=== PATIENT | male | born 1970 | race Caucasian/White ===

== ENCOUNTER 2017-01-17 08:12 | Inpatient (IN) ==
[2017-01-17] MEDS ORDERED: Verapamil 5 MG/2 ML VIAL ONE (08:14)
[2017-01-17] MEDS ORDERED: Nitroglycerin 1,000 MCG/10 ML VIAL IV ONE (08:14)
[2017-01-17] MEDS ORDERED: *HR* Heparin 10,000 UNIT/10 ML VIAL ONE (08:15)
[2017-01-17] MEDS ORDERED: Heparin 1,000 UNITS/500 mL NS 500 ML ONE (08:15)
[2017-01-17] MEDS ORDERED: 0.9 % Sodium Chloride 1,000 ML ONE ×2 (08:15→08:21)
[2017-01-17] MEDS ORDERED: *HR* FentaNYL (PF) 100 MCG/2 ML VIAL ONE (08:21)
[2017-01-17] MEDS ORDERED: *HR* Midazolam HCl 2 MG/2 ML VIAL ONE (08:21)
--- NOTE | 2017-01-17 08:28 | Emergency Department Note ---
Disposition Clinical Impression: STEMI (ST elevation myocardial infarction) Disposition: Admitted As Inpatient Condition: Critical Time of Disposition: 08:25 Chest Pain HPI - General Chief Complaint: ED Chest Pain Stated Complaint: STEMI Time Seen by Provider: 01/17/17 08:25 Source: patient, EMS Mode of arrival: ambulatory Limitations: no limitations Vital Signs Reviewed: Yes Nursing Notes Reviewed: Yes - History of Present Illness HPI Narrative: 46-year-old male with chest pain prehospital STEMI alert activated, EMS transmitted 12-lead EKG that showed ST segment elevations in anterior septal leads V2 through V6 with reciprocal changes inferiorly, a STEMI alert was activated prehospital by Dr. Farrar, Dr. Cannon the surgery aide was notified at 8:10. Patient was given 324 of aspirin en route, and 1 of nitroglycerin, had stable blood pressure and vitals mild tachycardia. Patient arrived to ED at 8:25. Limited history obtained from EMS and patient concomitantly with transfer to skilled laborer. Pt complaint: chest pain Onset (ago): hour(s) Pain Location: substernal Severity: severe Severity scale (1-10): 5 Treatments prior to arrival chest pain: aspirin, nitroglycerin Review of Systems: Due to the critical nature of the patient's complaint, chest pain STEMI alert, a full review of systems was not completed, the patient was transferred directly from the EMS squad bay to the catheter lab Limitations: ROS unobtainable due to patients medical condition Physical Exam A full physical exam was not obtained, evaulated on stretcher en route to [facility]; General: notable were patient's heart rate was 113, blood pressure 155/90, satting 98% on 2L o2 Neuro: the patient was alert and oriented 3, and conversant, appears mildly uncomfortable, Resp: no acute respiratory distress.Respirations even and unlabored. CV: tachycardic Course Course Narrative: 46-year-old male with chest pain, stimulant activated prehospital, patient arrived at approximately 825, by myself and cardiology in the stretcher in route to the [facility], patient's stable vital signs was mentating, but a full physical and review of systems is not obtained secondary to the patient's above complaints, and the urgency of his medical condition requiring catheterizaiton, skilled laborer team was in the squad bay, and the patient was accompanied by the surgery aide Dr. Cannon in the [facility] team directly to the catheter lab from the [facility] and only registered in the emergency department briefly to expedite his transport for definiteive treatment with [facility] intervention Chest Pain - MDM Narrative Medical decision making narrative: 46-year-old male similar activated transported directly to catheter lab for definitive treatment with Dr. Cannon color maker dyer - EKG Data EKG attestation: Yes I reviewed and interpreted this EKG. Rate: tachycardia ST segment elevation in: v2, v3, v4, v5 ST segment depression in: II, III, aVF Interpretation: acute [place] - Core Measures AMI Core Measures Followed: Yes (324mg ASA given en route) Attestation Statement - Attestation Attestation: I examined this patient and my medical decision-making was reviewed with the DRIER BELT CONVEYOR/PA/Advanced Practice Nurse/Resident Physician. I agree with the documented findings, disposition and treatment plan as described except to the extent set forth below. Patient was a field activated STEMI. Well appearing on arrival. Sitting up on cough. Patient went directly to [facility]. There is no history of physical exam performed in the ED. EKG showed sinus tachycardia with ST elevation in V1 through V5. Depressions in inferior leads.
[2017-01-17] MEDS ORDERED: Amiodarone Premix 0 MG/0 ML BAG IVPB ONE (08:58)
[2017-01-17] MEDS ORDERED: Tirofiban 5 MG/100ML 5 MG/100 ML BAG IV ONE ×2 (09:08→10:11)
[2017-01-17] MEDS ORDERED: *HR* Ticagrelor 90 MG TABLET ONE (10:06)
--- NOTE | 2017-01-17 10:23 | Invasive Diagnostic Lab Proc ---
Name: Zak Hitchcock Date of Study: 01/17/2017 Date: 1970 Ht: 72.0in Medical Record#: [id number] Age: 46 Wt: 312.62lb Gender: Male BSA: 2.58 Order #: [id number] BMI: 42.39 Physicians Procedure Physician: Bran Cannon MD, [facility] Referring MD: Referring MD: Staff Name Position Time In Debby Burroughs RT (R) Scrub 08:22 AM Christiana Magallon RN Liner Reroll Tender 08:22 AM Melina Monreal RN Liner Reroll Tender 08:22 AM Debbi Sanchez RN Nurse 08:22 AM [facility], Shreya RT (R) Monitor 08:22 AM Debby Burroughs RT (R) Scrub 08:33 AM Christiana Magallon RN Liner Reroll Tender 08:33 AM Melina Monreal RN Liner Reroll Tender 08:33 AM Debbi Sanchez RN Monitor 08:33 AM [facility], Shreya RT (R) 08:35 AM Indications Indication STEMI Procedures Performed Procedure PRQ CARD REVASC PA 1 VSL L HRT ARTERY/VENTRICLE ANGIO IVUS CORONARY 1ST VESSEL S\\T\\I Pre-Procedure Checklist Informed consent is complete signed and on chart. H\\T\\P is on chart. ID band is on and ID verified with patient. Patient NPO for procedure The procedure was described for the patient and questions were answered. Blood Pressure: 159/96 ECG is on chart. Rhythm: Sinus Tachycardia Plan of Care Patient will tolerate the procedure without complications. Adequate level of comfort will be maintained. Hemodynamics will remain stable Patient will recover from procedure without complications. Respiratory function will be maintained. Cardiac rhythm will remain stable. Patient temperature will be maintained. Patient and/or family have verbalized understanding of the procedure. Patient Education Chief Complaint/Reason for Test: Cardiac Cath Developmental Category: Adult (18-64 years) Developmentally Appropriate for Age: Yes Learning Barriers: None Education Needs: Procedure Education Method: Verbal Information Taught: Cardiac Cath Educational Evaluation: Able to repeat information Intravenous Access Time IV Size Location DC'd Fluid/Drip Rate Units RN 08:27 AM 20g 1 1/4" Patent On Arrival Lt Hand 0.9NaCl 25 ml/hr Allergies Penicillin Vital Signs Time BP (mmHg) HR (bpm) O2 Sat. RR (bpm) LOC 08:35 AM / % 5 = Fully awake and oriented or at pre-proc level 08:35 AM / % 5 = Fully awake and oriented or at pre-proc level 08:36 AM / % 5 = Fully awake and oriented or at pre-proc level 08:51 AM / % 5 = Fully awake and oriented or at pre-proc level 09:06 AM / % 5 = Fully awake and oriented or at pre-proc level 09:13 AM / % 5 = Fully awake and oriented or at pre-proc level 09:19 AM / % 5 = Fully awake and oriented or at pre-proc level 09:22 AM / % 5 = Fully awake and oriented or at pre-proc level 09:29 AM / % 5 = Fully awake and oriented or at pre-proc level 09:44 AM / % 5 = Fully awake and oriented or at pre-proc level 08:34 AM 159 / 96 109 97 % 30 08:39 AM 145 / 79 110 93 % 20 08:44 AM 148 / 88 106 94 % 20 08:49 AM 152 / 92 106 95 % 28 08:54 AM 148 / 95 109 97 % 34 08:59 AM 152 / 96 108 97 % 20 09:04 AM 151 / 99 107 96 % 20 09:09 AM 153 / 94 104 96 % 20 09:14 AM 148 / 98 106 96 % 21 09:19 AM 150 / 100 100 96 % 22 09:24 AM 155 / 90 106 96 % 21 09:29 AM 142 / 78 102 94 % 23 09:34 AM 150 / 96 106 95 % 21 09:39 AM 146 / 85 102 95 % 22 09:44 AM 145 / 89 105 96 % 20 09:49 AM 148 / 84 104 96 % 20 09:54 AM 148 / 93 105 97 % 21 09:59 AM 146 / 89 102 97 % 17 10:04 AM 145 / 93 105 97 % 22 Procedural Medications Time Medication Dose Units Method Given By 08:33 AM Oxygen 2 L/min nasal cannula Christiana Magallon RN 08:34 AM Lidocaine 2% 1 ml Subcutaneous Bran Cannon MD, FACC 08:35 AM Versed 2 mg Intravenous Christiana Magallon RN 08:35 AM Fentanyl 50 mcg Intravenous Christiana Magallon RN 08:35 AM Heparin 4000 units Intraarterial Bran Cannon MD 08:35 AM Nitroglycerin 200 mcg Intraarterial Bran Cannon MD 08:35 AM Verapamil 2.5 mg Intraarterial Bran Cannon MD, FACC 09:07 AM Heparin 2000 units Intravenous Christiana Magallon RN 09:09 AM Aggrastat Bolus: 71 ml Intravenous Christiana Magallon RN 09:10 AM Aggrastat 5mg/100ml 25.5 ml Intravenous Christiana Magallon RN 09:25 AM Nitroglycerin 200 mcg Intracoronary Bran Cannon MD 09:36 AM Nitroglycerin 200 mcg Intracoronary Bran Cannon MD 10:04 AM Brilinta 180 mg Orally Christiana Magallon RN ASA Classification: CLASS II- Mild systemic disease (i.e. well-controlled diabetes, hypertension, asthma, cigarette smoking) Emergent Procedure: ASA score is assumed Lenora Score Preprocedure Postprocedure Activity 2- Moves 4 extremities sustained head lift Activity 2- Moves 4 extremities sustained head lift Circulation 2- SBP +/= 20 points of pre-anesthetic level Circulation 2- SBP +/= 20 points of pre-anesthetic level Consciousness 2- Awake and alert oriented x 3 Consciousness 2- Awake and alert oriented x 3 O2 Saturation 2- Able to maintain O2 satruation of 92% on room air O2 Saturation 2- Able to maintain O2 satruation of 92% on room air Respiratory 2- Able to deep breathe and cough well Respiratory 2- Able to deep breathe and cough well Total Score 10 Total Score 10 Contrast Agent: Isovue Diagnostic Contrast: 281 ml Total Contrast: 281 ml Fluoro Dose: 2599 mGy Activated Clotting Time Time Seconds to Clot 09:11 AM 227 Procedure Log Time Note Enter By 08:22 AM Debby Burroughs RT (R) Position: Scrub Time in: 08:22 tsites 08:22 AM Christiana Magallon RN Position: Liner Reroll Tender Time in: 08:22 tsites 08:22 AM Melina Monreal RN Position: Liner Reroll Tender Time in: 08:22 tsites 08:22 AM eDbbi Sanchez RN Position: Nurse Time in: 08:22 tsites 08:22 AM Shreya Morris RT (R) Position: Monitor Time in: 08:22 tsites 08:22 AM Physician arrived 08:22 tsites 08:23 AM Patient charges- Angio tray pack, Navilyst 3mm J, Pulse Oximetry and ACIST tubing and transducer tsites 08:23 AM IV Supplies used: J loop Angio Cath. tsites 08:23 AM CathStat 08:27 AM Time: 08:27 Oxygen on at 2 L/min per nasal cannula by Christiana Magallon RN tsites 08:27 AM Haroldo and caroline completed tsites 08:27 AM Sign in performed according to hospital policy. tsites 08:27 AM Procedure start 08:33 tsites 08:27 AM Pt arrived to floating labor gang supervisor 2 at 08:27 tsites 08:27 AM No labs at this time, came straight from EMS to here tsites 08:28 AM Time out performed according to hospital policy tsites 08:33 AM CathStat 08:33 AM Vitals capture started with the following parameters, Patient=Adult, Interval=5 min, Initial Iigvndud=156 mmHg, Deflation Rate=5 mmHg, Cuff placed on Left Arm 08:33 AM Debby Burroughs RT (R) Position: Scrub Time in: 08:33 tsites 08:33 AM Christiana Magallon RN Position: Liner Reroll Tender Time in: 08:33 tsites 08:33 AM Melina Monreal RN Position: Liner Reroll Tender Time in: 08:33 tsites 08:33 AM Recorded ECG: WI=755 Condition=Condition 1 08:33 AM Debbi Sanchez RN Position: Monitor Time in: 08:33 tsites 08:33 AM Patient charges- Angio tray pack, Navilyst 3mm J, Pulse Oximetry and ACIST tubing and transducer tsites 08:34 AM JN=423 bpm, HPWJ=949/96 mmhg, SpO2=97.0 %, Resp=30 B/min 08:34 AM Time: 08:34 1 ml Lidocaine 2% to right radial Subcutaneous Given by Bran Cannon MD, FACC tsites 08:35 AM Access obtained by percutaneous puncture. 6Fr 10cm Terumo Glidesheath sheath placed in right Radial artery. [id number] tsites 08:35 AM Time: 08:35LOC: 5 = Fully awake and oriented or at pre-proc level tsites 08:35 AM Recorded ECG: NN=348 Condition=Condition 1 08:35 AM Shreya Morris RT (R) Position: Time in: 08:35 tsites 08:35 AM Time: 08:39 Patient given 4,000 units Heparin, 200 mcg Nitroglycerin, and 2.5 mg Verapamil Intraarterial by Bran Cannon MD, FACC tsites 08:35 AM Time: 08:35 Versed 2 mg Intravenous Given by Christiana Magallon RN tsites 08:35 AM Time: 08:35 Fentanyl 50 mcg Intravenous Given by Christiana Magallon RN tsites 08:35 AM Pressure channel 1 zeroed. 08:36 AM 6Fr RBL 3.5 Convey guide catheter was used to cannulate the PCI vessel successfully. reused? No tsites 08:36 AM Time: 08:34 Patient comfortable and pain free: Yes tsites 08:36 AM Time: 08:35LOC: 5 = Fully awake and oriented or at pre-proc level tsites 08:36 AM Inflation device was opened. tsites 08:37 AM LCA angiography performed in multiple views. tsites 08:37 AM Recorded Pressure: Ao, CV=411, Condition=Condition 1 (Aorta) Ao 114/91/100 08:37 AM .014 PT Graphix 180cm guide wire across target lesion- successful. reused? No tsites 08:38 AM 2.5 mm x 8 mm Emerge Monorail balloon across target lesion- successful. reused? No tsites 08:39 AM QK=691 bpm, XPWK=277/79 mmhg, SpO2=93.0 %, Resp=20 B/min, Comment=ST 08:40 AM Balloon inflated @ 6 mikayla for 5 seconds tsites 08:40 AM Balloon catheter removed intact. tsites 08:41 AM Guide wire removed intact. tsites 08:41 AM Recorded Pressure: Ao, YH=866, Condition=Condition 1 (Aorta) Ao 113/91/101 08:42 AM guidewire reinserted tsites 08:44 AM PR=183 bpm, UMIS=518/88 mmhg, SpO2=94.0 %, Resp=20 B/min, Comment=ST 08:45 AM Recorded Pressure: Ao, UJ=808, Condition=Condition 1 (Aorta) Ao 120/101/110 08:49 AM NIBP STAT measurement started. 08:49 AM MV=953 bpm, QSCP=125/92 mmhg, SpO2=95 %, Resp=28 B/min 08:49 AM Guide wire removed intact. tsites 08:49 AM Guide catheter removed intact. tsites 08:50 AM 6Fr JR 4 Runway guide catheter was used to cannulate the PCI vessel successfully. reused? No tsites 08:51 AM Time: 08:36 Patient comfortable and pain free: Yes tsites 08:51 AM Time: 08:36LOC: 5 = Fully awake and oriented or at pre-proc level tsites 08:51 AM Recorded Pressure: Ao, HR=98, Condition=Condition 1 (Aorta) Ao 122/98/110 08:52 AM RCA angiography performed in multiple views. tsites 08:52 AM Guide catheter removed intact. tsites 08:53 AM 6Fr EBU 3.25 Medtronic guide catheter was used to cannulate the PCI vessel successfully. reused? No tsites 08:54 AM NL=166 bpm, ICZB=492/95 mmhg, SpO2=97 %, Resp=34 B/min 08:54 AM Recorded Pressure: Ao, LN=058, Condition=Condition 1 (Aorta) Ao 123/102/112 08:54 AM .014 Fielder XT 300cm guide wire across target lesion- successful. reused? No tsites 08:56 AM Guide wire removed intact. tsites 08:56 AM Guide catheter removed intact. tsites 08:56 AM RBL guidecath reinserted tsites 08:58 AM Recorded Pressure: LV, Ao, HU=482, Condition=Condition 1 (Left Ventricle) LV 111/22/16, (Aorta) Ao 126/103/114 08:59 AM SZ=676 bpm, BYAF=830/96 mmhg, SpO2=97.0 %, Resp=20 B/min, Comment=ST 08:59 AM Recorded Pressure: Ao, CC=038, Condition=Condition 1 (Aorta) Ao 128/105/116 09:01 AM 1.2 mm x 12 mm It Admin OTW balloon across target lesion- successful. reused? No tsites 09:04 AM ZY=459 bpm, CVSK=495/99 mmhg, SpO2=96.0 %, Resp=20 B/min, Comment=ST 09:05 AM Balloon inflated @ 14 mikayla for 12 seconds tsites 09:05 AM Balloon inflated @ 10 mikayla for 13 seconds tsites 09:06 AM Time: 08:51LOC: 5 = Fully awake and oriented or at pre-proc level tsites 09:06 AM Time: 08:51 Patient comfortable and pain free: Yes tsites 09:06 AM Lesion found in Proximal LAD. Pre Stenosis: 100 Pre CHARMAINE Flow: 0: No Flow/No perfusion tsites 09:07 AM Proximal Left Anterior Descending Coronary Artery with 100% stenosis. tsites 09:07 AM Balloon inflated @ 14 mikayla for 8 seconds tsites 09:07 AM Time: 09: Heparin 2000 units Intravenous Given by Christiana Magallon RN tsites 09:09 AM Balloon catheter, funeral arranger removed intact. tsites 09:09 AM FH=175 bpm, PEPM=337/94 mmhg, SpO2=96.0 %, Resp=20 B/min, Comment=ST 09:09 AM Recorded Pressure: Ao, EF=126, Condition=Condition 1 (Aorta) Ao 120/97/107 09:10 AM Time: 09:09 Aggrastat Bolus: 71 ml Intravenous Given by Christiana Magallon RN Escalante pump tsites 09:10 AM Time: 09:10 Aggrastat 5mg/100ml 25.5 ml Intravenous Given by Christiana Magallon RN Escalante pump tsites 09:11 AM At 09:11 the ACT was 227 seconds. tsites 09:11 AM Fielder wire cut per Dr. Cannon (was a 300cm wire) tsites 09:12 AM 2.5 x 8 balloon reinserted tsites 09:12 AM Balloon inflated @ 14 mikayla for 13 seconds tsites 09:13 AM Time: :06LOC: 5 = Fully awake and oriented or at pre-proc level tsites 09:13 AM Balloon inflated @ 14 mikayla for 7 seconds tsites 09:13 AM Time: 09:13 Patient comfortable and pain free: Yes tsites 09:13 AM Balloon inflated @ 14 mikayla for 10 seconds tsites 09:14 AM YL=552 bpm, TIAL=241/98 mmhg, SpO2=96.0 %, Resp=21 B/min, Comment=ST 09:14 AM Balloon inflated @ 14 mikayla for 5 seconds tsites 09:14 AM Balloon inflated @ 14 mikayla for 7 seconds tsites 09:14 AM Balloon inflated @ 14 mikayla for 7 seconds tsites 09:15 AM Balloon catheter removed intact. tsites 09:18 AM 3.0mm x 24mm Synergy drug-eluting stent across target lesion- successful Lot #[id number] tsites 09:19 AM AP=104 bpm, CFQQ=037/100 mmhg, SpO2=96.0 %, Resp=22 B/min, Comment=ST 09:19 AM Time: :13LOC: 5 = Fully awake and oriented or at pre-proc level tsites 09:19 AM Time: 09:13 Patient comfortable and pain free: Yes tsites 09:19 AM Stent deployed @ 16 mikayla for 19 seconds tsites 09:21 AM Stent delivery system removed intact. tsites 09:21 AM 3.5 mm x 20mm NC Emerge balloon across target lesion- successful. reused? No tsites 09:22 AM Time: 09:19LOC: 5 = Fully awake and oriented or at pre-proc level tsites 09:23 AM Time: 09:19 Patient comfortable and pain free: Yes tsites 09:23 AM Balloon inflated @ 20 mikayla for 33 seconds tsites 09:24 AM WH=746 bpm, WGHS=479/90 mmhg, SpO2=96.0 %, Resp=21 B/min, Comment=ST 09:24 AM Balloon inflated @ 20 mikayla for 16 seconds tsites 09:25 AM Time: 09:25 Nitroglycerin 200 mcg Intracoronary Given by Bran Cannon MD tsites 09:25 AM Balloon inflated @ 20 mikayla for 12 seconds tsites 09:29 AM BH=513 bpm, GNRG=049/78 mmhg, SpO2=94.0 %, Resp=23 B/min, Comment=ST 09:29 AM Time: :22LOC: 5 = Fully awake and oriented or at pre-proc level tsites 09:29 AM Time: 09:23 Patient comfortable and pain free: Yes tsites 09:34 AM FI=497 bpm, TUEG=171/96 mmhg, SpO2=95.0 %, Resp=21 B/min, Comment=ST 09:34 AM Balloon catheter removed intact. tsites 09:35 AM Recorded Pressure: Ao, MB=914, Condition=Condition 1 (Aorta) Ao 123/101/110 09:36 AM Time: 09:36 Nitroglycerin 200 mcg Intracoronary Given by Bran Cannon MD tsites 09:37 AM Coronary Dominance: Left tsites 09:37 AM Lesion found in Mid RCA. Pre Stenosis: 50 Pre CHARMAINE Flow: 3: Complete and Brisk Flow/Perfusion tsites 09:37 AM Lesion found in Proximal Circumflex. Pre Stenosis: 15 Pre CHARMAINE Flow: 3: Complete and Brisk Flow/Perfusion tsites 09:37 AM Lesion found in Mid Circumflex. Pre Stenosis: 20 Pre CHARMAINE Flow: 3: Complete and Brisk Flow/Perfusion tsites 09:38 AM Right Coronary, Right Posterior Descending Arteries with Right Posterolateral and Acute Marginal branches with 50 % stenosis. tsites 09:38 AM Circumflex, Obtuse Marginal, Left Posterior Descending, and Left Posterolateral Coronary Arteries with 20 % stenosis. tsites 09:38 AM Lesion found in Left PDA. Pre Stenosis: 20 Pre CHARMAINE Flow: 3: Complete and Brisk Flow/Perfusion tsites 09:39 AM TS=952 bpm, FGDV=717/85 mmhg, SpO2=95.0 %, Resp=22 B/min, Comment=ST 09:39 AM Recorded Pressure: Ao, ZJ=070, Condition=Condition 1 (Aorta) Ao 118/95/104 09:39 AM Inflation device was opened. tsites 09:40 AM 3.6Fr/40mHz HEROZ Cross IVUS catheter was inserted into guide catheter and advanced to lesion. IVUS study was done and the catheter was removed. tsites 09:42 AM IVUS catheter removed intact tsites 09:44 AM FP=551 bpm, MDGF=764/89 mmhg, SpO2=96.0 %, Resp=20 B/min, Comment=ST :44 AM Time: :LOC: 5 = Fully awake and oriented or at pre-proc level tsites 09:44 AM Time: 09:29 Patient comfortable and pain free: Yes tsites 09:45 AM 4.0 mm x 20mm NC Trek Rx balloon across target lesion- successful. reused? No tsites 09:48 AM Balloon inflated @ 16 mikayla for 19 seconds tsites 09:49 AM UX=939 bpm, AEEJ=462/84 mmhg, SpO2=96.0 %, Resp=20 B/min, Comment=ST 09:49 AM Balloon inflated @ 12 mikayla for 8 seconds tsites 09:50 AM Balloon inflated @ 20 mikayla for 16 seconds tsites 09:51 AM Balloon catheter removed intact. tsites 09:51 AM 4.5 mm x 8mm NC Trek Rx balloon across target lesion- successful. reused? No tsites 09:54 AM Time: :44LOC: 5 = Fully awake and oriented or at pre-proc level tsites 09:54 AM OU=562 bpm, ZUKU=143/93 mmhg, SpO2=97.0 %, Resp=21 B/min, Comment=ST :54 AM Time: :44 Patient comfortable and pain free: Yes tsites 09:54 AM Balloon inflated @ 12 mikayla for 10 seconds tsites 09:54 AM Balloon inflated @ 16 mikayla for 10 seconds tsites 09:57 AM Balloon inflated @ 18 mikayla for 14 seconds tsites 09:58 AM Balloon catheter removed intact. tsites 09:58 AM Guide wire removed intact. tsites 09:58 AM Guide catheter removed intact. tsites 09:58 AM 5Fr Pigtail catheter inserted over the wire DNC tsites 09:59 AM PU=159 bpm, ZAWR=372/89 mmhg, SpO2=97.0 %, Resp=17 B/min, Comment=ST 10:00 AM Catheter selectively placed in left ventricle tsites 10:00 AM Bolus angiogram of left Ventricle complete: 10 ml/sec for a total of 30 mls tsites 10:00 AM Recorded Pressure: LV, YO=702, Condition=Condition 1 (Left Ventricle) LV 135/15/31 10:01 AM Recorded Pressure: LV, Ao, CB=421, Condition=Condition 1 (Left Ventricle) LV 133/16/48, (Aorta) Ao 122/97/108 10:02 AM Catheter removed tsites 10:02 AM Procedure completed at 10:02 tsites 10:03 AM Arterial sheath pulled, Vasc Band closure device used and was Successful S/N. tsites 10:04 AM WV=825 bpm, NLDC=978/93 mmhg, SpO2=97.0 %, Resp=22 B/min, Comment=ST 10:04 AM Time: 10:04 Brilinta 180 mg Orally Given by Christiana Magallon RN tsites 10:05 AM Sign out completed: Radiation Dose 2599.15 mGy Fluoro Time: 22.1 Isovue 370 - 200ml contrast 281 ml given by Bran Cannon MD, FACC. Complications: NoneCardiac Rehab Consult needed: YesConfirmed administered medications: Yes tsites 10:06 AM Isovue 370 - 200ml,1 Bottle(s) used. tsites 10:06 AM 12 ml air in Vasc Band. tsites 10:06 AM Post ECG Sinus Tachycardia tsites 10:06 AM Post Blood Pressure 145/93 tsites 10:06 AM 10:06 Post Pulses Rt Radial 1+ tsites 10:07 AM Information taught Cardiac Cath, PCI, and Vasc Band tsites 10:07 AM Education needs Procedure, Responsibilities of Patient in Care, and Plan of Care tsites 10:07 AM Learning barriers :None tsites 10:07 AM Education Methods Verbal tsites 10:07 AM Education evaluation Able to repeat information tsites 10:07 AM Site status No bleeding/hematoma - Rt Wrist as reported by Debby Burroughs RT (R) at 10:07 tsites 10:07 AM Plavix, Effient or Brilinta given Yes tsites 10:09 AM Time: 09:54 Patient comfortable and pain free: Yes tsites 10:14 AM Report given to Ninoska TREJO Pt taken to ICU Room #7. 10:14 tsites 10:14 AM Delay to floor No tsites 10:14 AM Patient out of room: 10:14 tsites 10:15 AM Family placed in consult room. tsites 10:15 AM Complications: None tsites Complications Complication None Hemodynamics Pressures Site Systolic/A Wave Diastolic/V Wave Mean AO 114 91 100 AO 113 91 101 AO 120 101 110 AO 122 98 110 AO 123 102 112 LV 111 22 16 AO 126 103 114 AO 128 105 116 AO 120 97 107 AO 123 101 110 AO 118 95 104 LV 135 15 31 LV 133 16 48 AO 122 97 108 Post Procedure Information Blood Pressure: 145/93 mmHg Rhythm: Sinus Tachycardia Post procedural instructions were given Closure Device Time Device Success/Fail 01/17/2017 10:03:00 AM Mechanical Compression Successful Site Checks Time Location Status Staff Sheath In? Note 10:07 AM Rt Wrist No bleeding/hematoma Debby Burroughs RT (R) Pulses Time Site Pre-Procedure Post-Procedure Note 01/17/2017 8:27:00 AM Bilateral radial 2+ 01/17/2017 8:27:00 AM Bilateral DP \\T\\ PT 2+ 10:06:00 AM Rt Radial 1+ Updated by Shreya Morris RT (R) on 01/17/2017 10:16:40 AM Shreya Morris RT electronically signed on 01/17/2017 10:17:23 AM with status of Final
[2017-01-17] MEDS ORDERED: Tirofiban 12.5 MG/250ML 12.5 MG/250 ML BAG IVC SCH (10:30)
[2017-01-17 10:51] LABS: Basophils % 0.1 %; Hematocrit 39.8 % (37.5-50.1); Hemoglobin 13.7 g/dL (12.9-16.9); Lymphocytes % 12.4 %; Mean Corpuscular HGB Conc 34.4 g/dL (31.6-35.5); Mean Corpuscular Hemoglobin 28.8 pg (28.0-33.3); Mean Corpuscular Volume 83.8 fL (83.0-100.0); Mean Platelet Volume 11.8 fL (9.4-12.4); Monocytes # 1.7 K/mcL (0.0-1.3); Neutrophils # 19.5 K/mcL (1.6-8.9); Platelet Count 247 K/mcL (140-400); Red Blood Count 4.75 M/mcL (4.19-5.50); Red Cell Distribution Width 12.7 % (11.5-14.5); Segmented Neutrophils % 79.5 %
[2017-01-17 10:53] LABS: BUN/Creatinine Ratio 12 (6-26); Blood Urea Nitrogen 10 mg/dL (8-26); Carbon Dioxide 22 mEq/L (19-29); Chloride 99 mEq/L (98-109); Potassium 3.9 mEq/L (3.5-4.5); Sodium 130 mEq/L (136-145)
[2017-01-17 10:54] LABS: Alanine Aminotransferase 60 Units/L (0-55); Albumin 3.2 g/dL (3.5-5.0); Alkaline Phosphatase 65 Units/L (38-126); Aspartate Amino Transferase 352 Units/L (5-34); Calcium 8.1 mg/dL (8.6-10.8); Globulin 3.2 g/dL (2.4-3.5); Glucose 129 mg/dL (70-99); Osmolality,Calculated 271 (280-300); Total Protein 6.4 g/dL (6.0-8.3); eGFR For African Americans > 60 (> 60); eGFR For Non-African Americans > 60 (> 60)
--- NOTE | 2017-01-17 11:27 | Pre-Sedation Evaluation ---
Pre-sedation evaluation - Pre-sedation checklist Date of procedure: 01/17/17 Procedure: [facility] Recent Vitals: Last Vital Signs Temp 98.5 F 01/17/17 10:42 Pulse 102 01/17/17 11:12 Resp 14 01/17/17 11:12 BP 147/98 01/17/17 11:12 Pulse Ox 96 01/17/17 11:12 H&P (including ROS) documented in medical record: Yes Previous reaction to sedatives/anesthetics: No Dietary Status: unknown Airway Assessment: Patient can open mouth completely, TMJ function normal If Yes;: Morbid obesity, Enlarged neck circumference, short neck ASA Classification *see protocol: CLASS II-Mild systemic disease, E-EMERGENCY- Add to any of the above to indicate emergent Plan of Care: Pt appropriate candidate for procedure/moderate/conscious sedation , Risks/benefits of procedure/sedation discussed w/ patient/family, If not NPO; Risk of intake outweiged by necessity to perform procedure
--- NOTE | 2017-01-17 13:08 | Electrocardiograph Report ---
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
--- NOTE | 2017-01-17 16:08 | Cardiology History & Physical ---
Date of Encounter: 01/17/17 Time of Encounter: 10:00 Assessment and Plan (1) STEMI (ST elevation myocardial infarction) Current Visit: Yes Status: Acute A/R/B of emergent LHC discussed with patient. Patient wishes to proceed with emergent LHC given severity of ongoing symptoms. Aspirin, Brilinta, heparin. EF assessment with echo and ventriculogram. The assessment and plan as outlined above was discussed with the patient and/or family members who expressed understanding and agreement. All questions were answered. Qualifiers: Involved coronary artery: LAD coronary artery Qualified Code(s): I21.02 - ST elevation (STEMI) myocardial infarction involving left anterior descending coronary artery (2) Hypertension Current Visit: Yes Status: Acute The assessment and plan as outlined above was discussed with the patient and/or family members who expressed understanding and agreement. All questions were answered. Qualifiers: Hypertension type: essential hypertension Qualified Code(s): I10 - Essential (primary) hypertension History of Present Illness Chief complaint: chest pain HPI: Mr. Hitchcock is a 46 year old male with no previous cardiac history presenting with worsening chest pressure without radiation but associated with dyspnea. Symptoms started Tuesday and worsened this morning. Pain improved mildly with morphine and nitroglycerin in EMS en route. EKG showed anterior current of injury and STEMI alert was activated. Past Med Surg Social Fam HX - Past Medical History Medical history: no medical history Psychiatric history: no psych history - Past Surgical History Surgical History: no surgical history - Social History Smoking Status: Current every day smoker Packs per day: 1 Smokeless Tobacco Status: Yes Alcohol use: occasionally Drug use: none Medications and Allergies Acetaminophen [Tylenol] 1,000 mg PO Q6HR PRN 01/17/17 [History] Naproxen Sodium [Aleve] 220 mg PO Q12H PRN 01/17/17 [History] Allergies No Known Allergies Allergy (Verified 01/17/17 11:14) All Systems Review: A 10-system review of systems was performed and is negative for pertinent findings except as documented above in the HPI. - Constitutional Constitutional: no chills, no fever(s) - EENT Eyes: no blurred vision, no loss of vision Nose, mouth and throat: no dysphagia, no epistaxis - Cardiovascular Cardiovascular: chest pain at rest, chest pain with exertion, dyspnea at rest, dyspnea on exertion - Respiratory Respiratory: no hemoptysis, no wheezing - Gastrointestinal Gastrointestinal: no hematemesis, no hematochezia - Genitourinary Genitourinary: no dysuria, no hematuria - Musculoskeletal Musculoskeletal: no arthralgias, no myalgias - Integumentary Integumentary: no erythema, no rash - Neurological Neurological: no dizziness, no numbness - Psychiatric Psychiatric: no anxiety, no depression - Hematological/Lymphatic Hematologic/Lymphatic: no easy bleeding, no easy bruising Physical Examination Vital Signs, Last 4 Hours Temp Pulse Resp BP Pulse Ox 01/17/17 16:03 100.0 F H 01/17/17 15:00 103 16 107/79 96 01/17/17 14:00 103 16 116/94 97 01/17/17 13:00 101 16 124/80 96 General: Conversant, Other (mild distress) HEENT: Atraumatic, Mucus Membranes Moist Neck: No JVD Cardiac: Reg Rate and Rhythm Lungs: Normal Breath Sounds Neuro: Alert and responsive Abdomen: Soft Skin: No rashes noted on visualized skin Musculoskeletal: No Chest Wall Tenderness Extremities: No Edema Results 01/17/17 10:05 01/17/17 10:05 - EKG Interpretation EKG results cardiology: personally reviewed, sinus rhythm (anterior current of injury)
[2017-01-17] MEDS: *HR* Ticagrelor 90 MG TABLET PO SCH (20:27)
[2017-01-18 03:23] LABS: Basophils % 0.2 %; Eosinophils % 0.1 %; Hematocrit 39.6 % (37.5-50.1); Hemoglobin 13.2 g/dL (12.9-16.9); Immature Granulocytes % 1.1 % (0-4); Lymphocytes # 3.8 K/mcL (0.6-4.6); Lymphocytes % 16.5 %; Mean Corpuscular HGB Conc 33.3 g/dL (31.6-35.5); Mean Platelet Volume 11.8 fL (9.4-12.4); Monocytes # 2.4 K/mcL (0.0-1.3); Monocytes % 10.3 %; Neutrophils # 16.4 K/mcL (1.6-8.9); Platelet Count 227 K/mcL (140-400); Red Blood Count 4.55 M/mcL (4.19-5.50); Red Cell Distribution Width 13.6 % (11.5-14.5); Segmented Neutrophils % 71.8 %
[2017-01-18 03:31] LABS: BUN/Creatinine Ratio 12 (6-26); Blood Urea Nitrogen 13 mg/dL (8-26); Calcium 8.6 mg/dL (8.6-10.8); Carbon Dioxide 26 mEq/L (19-29); Chloride 101 mEq/L (98-109); Glucose 112 mg/dL (70-99); Osmolality,Calculated 285 (280-300); Potassium 4.5 mEq/L (3.5-4.5); eGFR For African Americans > 60 (> 60); eGFR For Non-African Americans > 60 (> 60)
[2017-01-18 03:33] LABS: Sodium 137 mEq/L (136-145)
[2017-01-18] MEDS: *HR* Ticagrelor 90 MG TABLET PO SCH ×2 (07:55→20:58)
--- NOTE | 2017-01-18 08:57 | Cardiology Progress Note ---
Date of Encounter: 01/18/17 Time of Encounter: 08:55 Assessment and Plan (1) STEMI (ST elevation myocardial infarction) Current Visit: Yes Status: Acute S/P emergent LHC yesterday for STEMI. LHC revealed 100% proximal LAD stenosis with successful PTCA/CARMELO placement. She had remaining 15% prox circ and 20% mid circ stenosis, 20% left PDA stenosis, 50% mid RCA. DAPT (ASA and Brilinta) uninterrupted x 1 year. Pt verbalizes understanding. Continue Statin, BB, PADMINI-I. Echo pending. Pt denies chest pain or dyspnea overnight. Right radial access site healing well. No bleeding, hematoma or ecchymosis noted. Plan to transfer out of ICU today if bed is available. Possible discharge tomorrow. Qualifiers: Involved coronary artery: LAD coronary artery Qualified Code(s): I21.02 - ST elevation (STEMI) myocardial infarction involving left anterior descending coronary artery (2) Leukocytosis Current Visit: Yes Status: Acute WBC 24.6, 22.9. Temperature as high as 100.0, tachycardic with AVG HR 104. Pt denies any chills. Will order CXR and continue to monitor. Leukocytosis could be secondary to ACS. Qualifiers: Leukocytosis type: unspecified Qualified Code(s): D72.829 - Elevated white blood cell count, unspecified (3) Blood glucose elevated Current Visit: Yes Status: Acute Blood glucose mildly elevated. Will order HGBA1C. No known hx of diabetes. Discussion w patient/family: The assessment and plan as outlined above was discussed with the patient and/or family members who expressed understanding and agreement. All questions were answered. Thank you for involving us in the care of your patient. Please call with any questions. I will discuss all the above with Dr. Conner and make changes as necessary. Subjective Principal diagnosis: STEMI Interval history: S/P emergent LHC yesterday for STEMI. LHC revealed 100% proximal LAD stenosis with successful PTCA/CARMELO placement. She had remaining 15% prox circ and 20% mid circ stenosis, 20% left PDA stenosis, 50% mid RCA. Pt reports feeling great this AM, denies chest pain or dyspnea overnight. Echo pending. Objective Vital Signs, Last 4 Hours Pulse Resp BP Pulse Ox 01/18/17 08:00 96 16 125/105 96 01/18/17 07:00 100 16 121/85 96 01/18/17 06:00 101 18 145/78 94 L 01/18/17 05:00 102 18 117/57 95 Vital Signs Temp Pulse Resp BP Pulse Ox 01/18/17 08:00 96 16 125/105 96 01/18/17 07:00 100 16 121/85 96 01/18/17 06:00 101 18 145/78 94 L 01/18/17 05:00 102 18 117/57 95 01/18/17 04:00 107 18 119/87 94 L 01/18/17 03:00 99.6 F 109 24 110/73 95 01/18/17 02:00 105 24 101/77 96 01/18/17 01:00 104 24 111/78 94 L 01/18/17 00:00 115 24 124/77 94 L 01/17/17 23:00 100.0 F H 107 24 116/77 100 01/17/17 22:00 108 22 118/73 95 01/17/17 21:00 112 26 109/35 96 01/17/17 20:00 105 20 108/59 94 L 01/17/17 19:00 98.3 F 112 20 109/63 94 L 01/17/17 18:00 106 16 107/69 95 01/17/17 17:00 111 16 113/82 97 01/17/17 16:03 100.0 F H 01/17/17 15:00 103 16 107/79 96 01/17/17 14:00 103 16 116/94 97 01/17/17 13:00 101 16 124/80 96 01/17/17 12:00 96 14 108/91 99 01/17/17 11:36 0 0/0 01/17/17 11:27 101 14 124/11 97 01/17/17 11:12 102 14 147/98 96 01/17/17 10:48 106 14 158/103 96 01/17/17 10:46 109 14 158/103 96 01/17/17 10:42 98.5 F 107 14 138/93 97 Intake and Output 01/17/17 01/18/17 01/18/17 23:59 07:59 15:59 Intake Total 480 / 480 0 / 0 Output Total 1225 / 1225 875 / 875 Balance -745 / -745 -875 / -875 Intake: Oral 480 / 480 0 / 0 Output: Urine 1225 / 1225 875 / 875 Other: Meal Dinner Percent of Meal Consumed 100% Weight 140.6 kg General: Conversant, No Apparent Distress HEENT: Atraumatic, Normocephaly, Mucus Membranes Moist Neck: No JVD, Normal carotid pulses Cardiac: Reg Rate and Rhythm, Normal S1 and S2, No Murmur Lungs: Normal Breath Sounds, No Wheeze, Rales, Rhonchi Neuro: Alert and responsive, No focal deficits noted Abdomen: Soft, Non-Tender Skin: Other (right radial access site healing well. No bleeding, hematoma or ecchymosis noted.) Musculoskeletal: No Chest Wall Tenderness Extremities: No Clubbing, No Cyanosis, No Edema, Normal Pulses Results 01/18/17 02:50 01/18/17 02:50 Lab Results 01/18/17 01/18/17 02:50 02:50 WBC 22.9 H Hgb 13.2 Hct 39.6 Plt Count 227 Sodium 137 D Potassium 4.5 Chloride 101 Carbon Dioxide 26 BUN 13 Creatinine 1.07 Glucose 112 H Calcium 8.6 Short CBC 01/18/17 01/17/17 Range/Units 02:50 10:05 WBC 22.9 H 24.6 H (4.3-11.1) K/mcL Hgb 13.2 13.7 (12.9-16.9) g/dL Hct 39.6 39.8 (37.5-50.1) % Plt Count 227 247 (140-400) K/mcL Neutrophils # 16.4 H 19.5 H (1.6-8.9) K/mcL BMP 01/18/17 01/17/17 Range/Units 02:50 10:05 Sodium 137 D 130 L (136-145) mEq/L Potassium 4.5 3.9 (3.5-4.5) mEq/L Chloride 101 99 (98-109) mEq/L Carbon Dioxide 26 22 (19-29) mEq/L BUN 13 10 (8-26) mg/dL Creatinine 1.07 0.84 (0.72-1.25) mg/dL Glucose 112 H 129 H (70-99) mg/dL Calcium 8.6 8.1 L (8.6-10.8) mg/dL Cardiac Enzymes 01/17/17 Range/Units 10:05 Troponin I > 50.00 H* (0-0.03) ng/mL Liver Function 01/17/17 Range/Units 10:05 Total Bilirubin 1.0 (0.2-1.2) mg/dL AST 352 H (5-34) Units/L ALT 60 H (0-55) Units/L Alkaline Phosphatase 65 (38-126) Units/L Albumin 3.2 L (3.5-5.0) g/dL Active Medications Aspirin (Aspirin) 81 mg PO DAILY MAURICIO Stop: 07/20/17 09:01 Lisinopril (Zestril) 2.5 mg PO DAILY MAURICIO Stop: 07/20/17 09:01 Last Admin: 01/18/17 07:54 Dose: 2.5 mg Metoprolol Succinate (Toprol Xl) 25 mg PO DAILY MAURICIO Stop: 07/20/17 09:01 Last Admin: 01/18/17 07:56 Dose: 25 mg Rosuvastatin Calcium (Crestor) 40 mg PO HS MAURICIO Stop: 07/19/17 21:01 Last Admin: 01/17/17 20:27 Dose: 40 mg Ticagrelor (Brilinta) 90 mg PO BID MAURICIO Stop: 07/19/17 21:01 Last Admin: 01/18/17 07:55 Dose: 90 mg - Imaging and Cardiology Echo: pending Cardiac cath: report reviewed (100% proximal LAD stenosis with successful PTCA/ CARMELO placement. She had remaining 15% prox circ and 20% mid circ stenosis, 20% left PDA stenosis, 50% mid RCA.) - EKG Interpretation EKG results cardiology: other (24 hour tele AVG HR 104, SR, no significant pauses or arrhythmias.) Consult Discharge Plan - Plan Referrals: NO,PCP [Primary Care Provider] -
[2017-01-18] MEDS ORDERED: Aspirin 81 MG TAB.CHEW PO SCH (09:00)
[2017-01-18] MEDS ORDERED: Metoprolol XL (24 HR) Succ 25 MG TAB.ER.24H PO SCH (09:00)
--- NOTE | 2017-01-18 09:18 | ECHO - Doppler Report ---
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 LV systolic function appears moderate to severely reduced with regional variations. Recommend use of Definity to help quantify LVEF. RV size and function are normal. No significant valvular dysfunction. No pulmonary hypertension. Left Ventricular Wall Motion: Rest Echo Findings The apex, apical inferior, mid inferior, basal inferior, apical septal, mid inferior septal, basal inferior septal, apical lateral, mid anterior lateral, basal anterior lateral, mid anterior septal, mid inferior lateral, basal anterior septal and basal inferior lateral maldonado were hypokinetic. The apical anterior, mid anterior and basal anterior maldonado were not visualized. Findings: Study Quality * Technically sub-optimal due to body habitus. ECG Findings * Sinus tachycardia. Aortic Valve * No aortic regurgitation. * Aortic valve not well visualized. * No aortic stenosis. Mitral Valve * Normal mitral valve structure. * No mitral stenosis. * Trace mitral regurgitation. Tricuspid Valve * Tricuspid valve not well visualized. * No tricuspid regurgitation. * Estimated RA pressure is 3 mmHg. Pulmonic Valve * Pulmonic valve is not well visualized. * No pulmonic stenosis. * No pulmonic regurgitation. Pulmonary Artery * Pulmonary artery not well visualized. Right Ventricle * Normal right ventricular structure and function. Left Atrium * Normal left atrial size. Right Atrium * Normal right atrial size. Left Ventricle * Indeterminate diastolic function. Interatrial Septum * Interatrial septum not well evaluated. IVC * Normal IVC dimensions and inspiratory collapse. Pericardium * There is no pericardial effusion present. Aorta * Not well visualized. History History of Smoking Years Packs 1 Measurements: BP: 107/ 79 2D Normal Values IVSd: 1.15 cm 0.6 - 1.0 cm LVIDd: 5.60 cm 3.7 - 5.6 cm LVPWd: 1.11 cm 0.6 - 1.1 cm LVIDs: 3.43 cm 1.5 - 3.6 cm AO: 2.90 cm < 4.0 cm LA: 3.90 cm 2.0 - 4.0cm %FS: 42.60 cm >25 % LA volume: 50 Mitral Valve Peak E:1.12 m/sec Peak E' Lat Meir:9.9 cm/s Peak E' Med Meir:16.2 cm/s E/E' Lat Ratio:11.3 E/E' Med Ratio:6.9 Updated by Rebekah Schaffer on 01/18/2017 9:14:20 AM electronically signed on 01/18/2017 9:15:03 AM with status of Final Wall Motion [place]: 1=Normal, 2=Hypokinesis, 3=Akinesis, 4=Dyskinesis, 5=Aneurysmal, 6=Hyperkinetic, X=Not Visualized (Blank)=Missing
[2017-01-18 10:18] LABS: Hemoglobin A1C 5.6 %
--- NOTE | 2017-01-18 14:02 | Invasive Diagnostic Lab ---
Name: Zak Hitchcock Date of Study: 01/17/2017 Date: 1970 Ht: 182.9 cm /72.0 in Medical Record#: [id number] Age: 46 Wt: 141.8 kg / 312.62 lb Account/Order#: [id number] Gender: Male BSA: 2.58 Order #: [id number] Fluoro Dose: 2599 mGy BMI: 42.39 Procedure Physician: Bran Cannon MD, [facility] Referring MD: Referring MD: Procedures Performed: PCI of Acute VA LEFT HEART CATH IVUS CORONARY INITIAL VESSEL Stent w/ PTCA Single Major Vessel - CARMELO Indications: STEMI Impressions: There is severe one vessel coronary artery disease. The left ventricle EF 20% Patient had successful PTCA/Drug-Eluting Stent placement in the proximal LAD. Recommendations: Optimal medical therapy of patient's disease. Aggressive risk factor modification. Patient being referred for cardiac rehab. History/Risk Factors: STEMI Hypertension Procedure Access obtained in the right Radial artery by percutaneous puncture Patient had successful PTCA/Drug-Eluting Stent placement in the proximal LAD. Complications: None Contrast: Isovue 281ml Hemodynamics: Pressures Site Systolic/ A Wave Diastolic/ V Wave End Diastolic/ Mean HR AO 114 91 100 105 AO 113 91 101 107 AO 120 101 110 107 AO 122 98 110 98 AO 123 102 112 112 LV 111 22 16 109 AO 126 103 114 109 AO 128 105 116 108 AO 120 97 107 110 AO 123 101 110 104 AO 118 95 104 104 LV 135 15 31 103 LV 133 16 48 103 AO 122 97 108 104 LV Ventriculography Ejection Method: LV Gram Ejection Fraction: 20% Wall Motion: WISE Anterobasal Mild Hypokinesis Anterolateral Severe Hypokinesis Apical: Severe Hypokinesis Inferoapical Severe Hypokinesis Inferobasal Mild Hypokinesis Coronary Dominance: Left Lesion Findings/Interventions * Left Main Coronary Artery The LMCA is angiographically free of disease. * Left Anterior Descending * Circumflex There is a 15% stenosis in the Proximal Circumflex. The lesion has a CHARMAINE flow of 3. There is a 20% stenosis in the Mid Circumflex. The lesion has a CHARMAINE flow of 3. There is a 20% stenosis in the Left PDA. The lesion has a CHARMAINE flow of 3. * Right Coronary Artery There is a 50% stenosis in the Mid RCA. The lesion has a CHARMAINE flow of 3. Interventional Device(s) Vessel Segment Type Name Diameter (mm) Length (mm) Proximal LAD balloon Welder Plastic OTW 1.2 12 Proximal LAD balloon Emerge Monorail 2.5 8 Proximal LAD drug-eluting stent Synergy 3 24 Proximal LAD balloon NC Emerge 3.5 20 Proximal LAD balloon NC Trek Rx 4 20 Proximal LAD balloon NC Trek Rx 4.5 8 Updated by Shreya Morris, RT (R) on 01/17/2017 10:10:22 AM Bran Cannon MD, FACC electronically signed on 01/18/2017 1:58:18 PM with status of Final
[2017-01-18] MEDS ORDERED: *HR* Heparin 5,000 UNIT/ML VIAL SQ SCH (18:00)
[2017-01-18] MEDS: *HR* Heparin 5,000 UNIT/ML VIAL SQ SCH (18:48)
[2017-01-18] MEDS ORDERED: Perflutren Lipid Microsphere 1.3 ML in 0.9 % Sodium Chloride 8.7 ML IVP ONE (20:16)
[2017-01-19] MEDS ORDERED: Isosorbide MONOnitrate (24 HR) 30 MG TAB.ER.24H PO ONE (06:00)
[2017-01-19] MEDS: *HR* Heparin 5,000 UNIT/ML VIAL SQ SCH (07:27)
[2017-01-19] MEDS: *HR* Ticagrelor 90 MG TABLET PO SCH (08:45)
[2017-01-19] MEDS ORDERED: Metoprolol XL (24 HR) Succ 25 MG TAB.ER.24H PO SCH (09:00)
[2017-01-19] MEDS ORDERED: Aspirin 81 MG TAB.CHEW PO SCH (09:00)
[2017-01-19 09:11] LABS: Basophils % 0.2 %; Eosinophils % 0.2 %; Hematocrit 37.5 % (37.5-50.1); Hemoglobin 12.5 g/dL (12.9-16.9); Immature Granulocytes % 0.9 % (0-4); Lymphocytes # 3.1 K/mcL (0.6-4.6); Lymphocytes % 17.3 %; Mean Corpuscular HGB Conc 33.3 g/dL (31.6-35.5); Mean Corpuscular Hemoglobin 29.1 pg (28.0-33.3); Mean Corpuscular Volume 87.4 fL (83.0-100.0); Monocytes # 1.7 K/mcL (0.0-1.3); Monocytes % 9.5 %; Neutrophils # 12.8 K/mcL (1.6-8.9); Platelet Count 206 K/mcL (140-400); Red Blood Count 4.29 M/mcL (4.19-5.50); Red Cell Distribution Width 13.7 % (11.5-14.5); Segmented Neutrophils % 71.9 %
[2017-01-19 09:24] LABS: BUN/Creatinine Ratio 15 (6-26); Blood Urea Nitrogen 16 mg/dL (8-26); Calcium 8.6 mg/dL (8.6-10.8); Carbon Dioxide 27 mEq/L (19-29); Chloride 101 mEq/L (98-109); Glucose 128 mg/dL (70-99); Osmolality,Calculated 285 (280-300); Potassium 3.7 mEq/L (3.5-4.5); Sodium 136 mEq/L (136-145); eGFR For African Americans > 60 (> 60); eGFR For Non-African Americans > 60 (> 60)
--- NOTE | 2017-01-19 10:24 | Discharge Summary ---
Date of Encounter: 01/19/17 Time of Encounter: 10:20 - Discharge Diagnosis (1) Hypertension Priority: Primary Status: Acute Qualifiers: Hypertension type: essential hypertension Qualified Code(s): I10 - Essential (primary) hypertension (2) STEMI (ST elevation myocardial infarction) Priority: Primary Status: Acute Qualifiers: Involved coronary artery: LAD coronary artery Qualified Code(s): I21.02 - ST elevation (STEMI) myocardial infarction involving left anterior descending coronary artery (3) Leukocytosis Priority: Primary Status: Acute Qualifiers: Leukocytosis type: unspecified Qualified Code(s): D72.829 - Elevated white blood cell count, unspecified - Discharge Medications Prescriptions: Aspirin 81 mg PO DAILY #30 tab.chew Lisinopril [Zestril] 2.5 mg PO DAILY #30 tablet Metoprolol XL (24 HR) Succ [Toprol Xl] 25 mg PO DAILY #30 tab.er.24h Rosuvastatin [Crestor] 40 mg PO HS #30 tablet Ticagrelor [Brilinta] 90 mg PO BID #60 tablet Home Medications: Acetaminophen [Tylenol] 1,000 mg PO Q6HR PRN 01/17/17 [History] Aspirin 81 mg PO DAILY #30 tab.chew 01/19/17 [Rx] Lisinopril [Zestril] 2.5 mg PO DAILY #30 tablet 01/19/17 [Rx] Metoprolol XL (24 HR) Succ [Toprol Xl] 25 mg PO DAILY #30 tab.er.24h 01/19/17 [ Rx] Rosuvastatin [Crestor] 40 mg PO HS #30 tablet 01/19/17 [Rx] Ticagrelor [Brilinta] 90 mg PO BID #60 tablet 01/19/17 [Rx] Allergies/Adverse Reactions: Allergies No Known Allergies Allergy (Verified 01/17/17 11:14) Procedures/tests Complete & Pending: Procedures Performed prior 72 hours Category Date Time Status EV limited echo w enhance Routine Y 01/18/17 10:14 Completed Date of admission: 01/17/17 12:38 Primary care physician: PCP NO Consults: None Discharging clinician: Dinh Carrera Anticipated date of discharge: 01/19/17 - Patient Status Disposition: Home, Self-Care Condition: Critical Functional capacity at discharge: independent ambulation Overall status at discharge: patient is progressing back to baseline - Discharge Instructions Follow Up With: NO,PCP [Primary Care Provider] - Additional Instructions: RISK FACTORS: STOP SMOKING: If you smoke, STOP. Smoking or tobacco use significantly increases your risk of heart disease because nicotine causes the arteries to narrow or constrict. It also causes fats to stick to the artery. Your chances of having a heart attack are greatly increased if you continue to smoke. For more information, call the education line for smoking cessation [id number] EAT A LOW FAT/CHOLESTEROL/SODIUM DIET: This diet may help reduce your chances of having a heart attack. LIFTING: With affected extremity: Avoid bending, pushing off and lifting more than 2 pounds for 24 hours The following 48 hours, avoid lifting anything more than 5 pounds Avoid strenuous activity or repetitive motions ACTIVITY: You may walk or climb stairs as tolerated You can resume sexual activity as tolerated In general, you are encouraged to engage in a minimum of 30 minutes or more of moderate intensity physical activity, such as brisk walking, daily or at least 3 -4 times weekly BATHING Do not submerge the site into water (bath tub, hot tub, swimming pool, dishes) for 1 week. This can be a source for infection into the blood stream. You may shower after 24 hours SITE CARE: After 24 hours, you may remove the dressing and leave the site open to air. Keep the site clean and dry. Clean gently and pat dry. You can expect bruising and tenderness that gradually resolve within a week or two. Return to work as instructed per your physician Resume driving as instructed per physician Keep all scheduled follow up appointments Resume medications as instructed IMPORTANT: If prescribed a Platelet Aggregation Inhibitor such as, Plavix, Brilinta or Effient: Duration of therapy is minimum one year These medications are often used in combination with Aspirin in prevention of future heart attacks Never discontinue unless consult with your Forklift Mechanic STROKE (CVA) Risk factors for a stroke are: Age, cigarette smoking, diabetes, excessive alcohol consumption, family history, high blood pressure, overweight, physical inactivity, prior stroke, heart attack, diagnosis of carotid artery stenosis or other artery disease. Warning signs: Sudden numbness or weakness of the face, arm or leg; especially on one side of the body, sudden confusion, trouble speaking or understanding, sudden trouble seeing in one or both eyes, sudden trouble walking, dizziness, loss of balance or coordination, sudden severe headache with no cause. Call 911 or go to the Emergency Room. CONGESTIVE HEART FAILURE: If you have been diagnosed with Congestive Heart Failure (CHF) and your symptoms return, make an appointment with your physician Weigh yourself daily. Notify your physician if you have a weight gain of two or more pounds in one day or five or more pounds in one week. If you experience any difficulty breathing, please call 911 BLEEDING: Although the risk of bleeding is minimal, it can happen. If you have any bleeding from the site, apply firm pressure above the puncture site for 10-15 minutes. If the bleeding does not stop, continue manual pressure and call 911 Contact [facility] ( ) if: You develop a fever greater than 101 degrees Fahrenheit Your site becomes reddened or has any drainage You have an increase in pain or burning at the site or if a large knot forms at the site. If you experience chest pain, shortness of breath, dizziness, or extreme tiredness, stop the activity and rest. Please notify [facility] office if you experience any of these symptoms and they are not relieved by rest please call 911! - Diet and Activity Activity: increase activity as tolerated Diet: advance to your usual diet, low fat, low cholesterol - Hospital Course Hospital course: Mr. Hitchcock is a 46 year old male who presented with c/o sudden onset of chest pain and was found to have an acute anterior ID. He is S/P emergent LHC . LHC revealed 100% proximal LAD stenosis with successful PTCA/CARMELO placement. She had remaining 15% prox circ and 20% mid circ stenosis, 20% left PDA stenosis, 50% mid RCA. Echo resulted--Poor windows. LV systolic function moderate-severely reduced with regional variations. RV size and function normal. No significant valvular dysfunction. Limited echo with definity pending. Importance of DAPT (ASA and Brilinta) uninterrupted x 1 year discussed. Pt verbalizes understanding. Continue Statin, BB, PADMINI-I. Pt denies recurrent chest pain. C/o Nausea, diarrhea, and sore throat two days before chest pain. His sore throat and nausea and vomiting is resolved. Diarrhea improving. Right radial access site healing well. No bleeding, hematoma or ecchymosis noted. Ready for discharge today. - Time Spent with Patient Total time spent providing and/or coordinating discharge services: 1 hr Greater than 30 minutes (d/c summary, teaching, med rec.) Physical Examination Vital Signs, Last 4 Hours Temp Pulse Resp BP Pulse Ox 01/19/17 08:00 92 19 104/73 95 01/19/17 07:50 98.3 F General: Conversant, No Apparent Distress HEENT: Atraumatic, Normocephaly, Mucus Membranes Moist Neck: No JVD, Normal carotid pulses Cardiac: Reg Rate and Rhythm, Normal S1 and S2, No Murmur Lungs: Normal Breath Sounds, No Wheeze, Rales, Rhonchi Neuro: Alert and responsive, No focal deficits noted Abdomen: Soft, Non-Tender Skin: No rashes noted on visualized skin Musculoskeletal: No Chest Wall Tenderness Extremities: No Clubbing, No Cyanosis, No Edema, Normal Pulses, Other (right radial access without hematoma or redness. )
--- NOTE | 2017-01-19 11:32 | ECHO - Doppler Report ---
Limited Echo with Imaging Enhancement Agent Name: Zak Hitchcock Date of Study: 01/18/2017 Date: 1970 Ht: 72.0 in Medical Record#: [id number] Age: 46 Wt: 309.0 lb Gender: Male BSA: 2.56 Order #: [id number] Location: [facility] Room #: [facility] Reading Physician: Fernando Boland DO, FACC, FASE, FASNC Narrow Gauge Engineer: Anabela Tyson Ordering Physician: Mike Cooper CNP Primary Physician: None Indications: STEMI, Evaluate EF Impressions: LVEF 30-35%. Mildly dilated left ventricle. Severe segmental left ventricular systolic dysfunction. There is no LV thrombus. Left Ventricular Wall Motion: Rest Echo Findings The apex, apical inferior, mid inferior, apical anterior, apical septal, mid inferior septal, apical lateral and mid anterior septal maldonado were hypokinetic. All other wall segments showed normal motion. Findings: Study Quality * Technically adequate exam. ECG Findings * Sinus rhythm with BBB. Left Ventricle * LVEF 30-35%. * Mildly dilated left ventricle. * Severe segmental left ventricular systolic dysfunction. * There is no LV thrombus. * Atypical septal motion consistent with bundle branch block. Right Ventricle * Normal right ventricular structure and function. History History of Smoking Years Packs 1 01/17/2017 a Previous Echo was performed. Contrast: Definity 1.3 ml in 8.7 ml of saline 9 ml. Measurements: BP: 100/ 61 2D Normal Values RVIDd: 3.70 cm <2.7 cm IVSd: 1.10 cm 0.6 - 1.0 cm LVIDd: 6.10 cm 3.7 - 5.6 cm LVPWd: 1.40 cm 0.6 - 1.1 cm LVIDs: 4.40 cm 1.5 - 3.6 cm %FS: 27.90 cm >25 % LA volume: Updated by Fernando Boland DO, FACC, FASE, FASNC on 01/19/2017 11:27:55 AM electronically signed on 01/19/2017 11:28:56 AM with status of Final Wall Motion [place]: 1=Normal, 2=Hypokinesis, 3=Akinesis, 4=Dyskinesis, 5=Aneurysmal, 6=Hyperkinetic, X=Not Visualized (Blank)=Missing
[2017-01-19 14:40] VITALS: BP 113/70
== END 2017-01-19 14:00 | disposition home or self-care (01) | DRG 247 ==
LOC: EMEROO 08:12 → ICNU 08:12
PROVIDERS: ADMIT Emergency Medicine; ATTEND Emergency Medicine

== ENCOUNTER 2017-01-31 09:47 | Observation (INO) ==
[2017-01-31] MEDS ORDERED: Aspirin 81 MG TAB.CHEW ONE (10:01)
[2017-01-31] MEDS ORDERED: 0.9 % Sodium Chloride 1,000 ML ONE ×2 (10:03→11:41)
[2017-01-31 10:11] LABS: Basophils % 0.3 %; Eosinophils # 0.2 K/mcL (0.0-0.6); Eosinophils % 1.5 %; Hematocrit 41.5 % (37.5-50.1); Hemoglobin 13.4 g/dL (12.9-16.9); Immature Granulocytes % 0.5 % (0-4); Immature Platelets 4.2 % (1.1-6.1); Lymphocytes # 4.2 K/mcL (0.6-4.6); Lymphocytes % 27.9 %; Mean Corpuscular HGB Conc 32.3 g/dL (31.6-35.5); Mean Corpuscular Hemoglobin 28.3 pg (28.0-33.3); Mean Corpuscular Volume 87.6 fL (83.0-100.0); Monocytes # 0.9 K/mcL (0.0-1.3); Monocytes % 6.1 %; Neutrophils # 9.7 K/mcL (1.6-8.9); Platelet Count 398 K/mcL (140-400); Red Blood Count 4.74 M/mcL (4.19-5.50); Red Cell Distribution Width 12.8 % (11.5-14.5); Segmented Neutrophils % 63.7 %
[2017-01-31 10:15] LABS: Prothrombin Time 10.3 Seconds (9.4-12.1)
[2017-01-31 10:17] LABS: Activated Partial Thrombo Time 31.4 Seconds (26.0-36.0)
[2017-01-31] MEDS ORDERED: Aspirin 81 MG TAB.CHEW PO ONE (10:20)
[2017-01-31] MEDS ORDERED: *HR* Metoprolol 5 MG/5 ML VIAL IVP ONE ×2 (10:20→16:52)
[2017-01-31] MEDS ORDERED: Amiodarone Premix 150 MG/100 ML BAG IVPB ONE (10:20)
[2017-01-31 10:25] LABS: BUN/Creatinine Ratio 17 (6-26); Blood Urea Nitrogen 21 mg/dL (8-26); Carbon Dioxide 22 mEq/L (19-29); Chloride 106 mEq/L (98-109); Glucose 111 mg/dL (70-99); Lipase 46 Units/L (8-78); Magnesium 2.1 mg/dL (1.6-2.6); Osmolality,Calculated 294 (280-300); Potassium 4.5 mEq/L (3.5-4.5); Sodium 140 mEq/L (136-145); eGFR For African Americans > 60 (> 60); eGFR For Non-African Americans > 60 (> 60)
[2017-01-31] MEDS ORDERED: Amiodarone 360 MG in D5% in Water 200 ML IVPB ONE (10:31)
--- NOTE | 2017-01-31 10:31 | Emergency Department Note ---
Disposition Clinical Impression: STEMI (ST elevation myocardial infarction), Wide-complex tachycardia Disposition: Admitted As Inpatient Condition: Critical Chest Pain HPI - General Chief Complaint: ED Chest Pain Stated Complaint: SOB/Chest Pain Time Seen by Provider: 01/31/17 09:57 Source: patient, family Limitations: no limitations Vital Signs Reviewed: Yes Nursing Notes Reviewed: Yes - History of Present Illness HPI Narrative: Patient is a 46-year-old male with history history of recent UT he had a stent to the LAD approximate 3 weeks ago. He states he wakes up every morning earlier all 4 AM and today was noticed he was short of breath. He states he tried to lay back down but could not catch his breath approximately 6 AM he started having some substernal chest pain and also felt like his heart was skipping beats. He took all of his daily medications this morning and thought he should come to the ER and get evaluated. Severity scale (1-10): 4 Improves with: nothing Worsens with: nothing Associated symptoms: Reports: nausea, diaphoresis, dyspnea - Related Data Home Medications Medication Instructions Recorded Confirmed Acetaminophen [Tylenol] 1,000 mg PO Q6HR PRN 01/17/17 01/17/17 Previous Rx's Medication Instructions Recorded Aspirin 81 mg PO DAILY #30 tab.chew 01/19/17 Lisinopril [Zestril] 2.5 mg PO DAILY #30 tablet 01/19/17 Metoprolol XL (24 HR) Succ [Toprol 25 mg PO DAILY #30 tab.er.24h 01/19/17 Xl] Rosuvastatin [Crestor] 40 mg PO HS #30 tablet 01/19/17 Ticagrelor [Brilinta] 90 mg PO BID #60 tablet 01/19/17 Allergies Allergy/AdvReac Type Severity Reaction Status Date / Time No Known Allergies Allergy Verified 01/17/17 11:14 All systems ED: reviewed and negative except as stated. Constitutional: Denies: fever, chills Cardiovascular: Reports: chest pain, palpitations, dyspnea on exertion, orthopnea Chest Pain PMH - Past Medical History Medical history: Reports: myocardial infarction Surgical history: Reports: no surgical history Psychiatric history: Reports: no psych history - Social History Smoking Status: Former smoker Alcohol use: Reports: occasionally Drug use: Reports: none Physical Exam - General Limitations: no limitations General appearance: alert, in distress - Head Head exam: atraumatic, normocephalic, normal inspection - Eye Eye exam: Present: normal appearance, PERRL, EOMI - Expanded Eye Exam Pupils: Left: reactive - ENT ENT exam: normal exam, normal oropharynx, mucous membranes moist - Expanded ENT Exam External ear exam: Present: normal external inspection Mouth exam: Present: normal external inspection Teeth exam: Present: normal inspection Throat exam: Present: normal inspection - Neck Neck exam: Present: normal inspection, full ROM, trachea midline - Chest Chest inspection: Present: normal inspection, symmetric chest wall rise - Respiratory Respiratory exam: Present: normal lung sounds bilaterally - Cardiovascular Cardiovascular exam: Present: tachycardia - Abdominal Exam Abdominal exam: Present: soft, Non-Tender. Absent: tenderness, distention, guarding, rebound, rigidity - Extremities Exam Extremities exam: Present: normal inspection, full ROM. Absent: tenderness, pedal edema - Expanded Upper Extremity Exam Shoulder exam: Present: normal inspection, full ROM Arm exam: Present: normal inspection, full ROM Elbow exam: Present: normal inspection, full ROM Forearm/Wrist exam: Present: normal inspection, full ROM Hand exam: Present: normal inspection, full ROM Vascular exam: Normal: capillary refill, radial pulse - Expanded Lower Extremity Exam Hip/Pelvis exam: Present: normal inspection, full ROM Upper leg exam: Present: normal inspection, full ROM Knee exam: Present: normal inspection, full ROM Lower leg exam: Present: normal inspection, full ROM Ankle exam: Present: normal inspection, full ROM Foot/toe exam: Present: normal inspection, full ROM Neurovascular/Tendon exam: Absent: motor deficit, sensory deficit, tendon deficit - Back Exam Back exam: Present: normal inspection, full ROM. Absent: tenderness - Neurological Exam Neurological exam: Present: alert, oriented X3 - Expanded Neurological Exam Patient oriented to: Present: person, place, time Coma Scale Eye Opening: Spontaneous Coma Scale Motor Response: Obeys Commands Coma Scale Verbal Response: Oriented Coma Scale Total: 15 - Psychiatric Psychiatric exam: Present: normal affect, normal mood - Skin Skin exam: Present: diaphoresis Course - Reevaluation(s) Reevaluation #1: She converted to sinus rhythm repeat EKG is performed he does have ST elevation in V1 through V5 patient still complaining of some mild chest discomfort and diaphoretic a STEMI alert was activated. Time: 10:37 - Consultations Consultation #1: EKG sent to Dr. Cannon he recommends calling rounding dr bey i spoke with Dr. Boland recommends adding beta agustín on top of amiodarone his nurse practitioners here to see the patient in consult if unstable will cardiovert Time: 10:30 Consultation #2: Dr. Boland present in the ER he is going to speak with Dr. Cannon the trade embalmer for cardiac catheter plans Time: 10:48 Vital Signs Temperature 98 F 01/31/17 09:53 Pulse Rate 180 01/31/17 09:53 Respiratory Rate 20 01/31/17 09:53 Blood Pressure 140/96 01/31/17 09:53 O2 Sat by Pulse Oximetry 98 01/31/17 09:53 Temperature 98 F 01/31/17 09:53 Pulse Rate 185 01/31/17 10:28 Respiratory Rate 20 01/31/17 10:28 Blood Pressure 114/76 01/31/17 10:28 O2 Sat by Pulse Oximetry 99 01/31/17 10:28 Oxygen Delivery Oxygen Delivery Nasal Cannula Chest Pain - MDM Narrative Medical decision making narrative: Patient presented to the ER with a wide complex tachycardia diaphoretic with chest pain. Performed EKG on arrival which showed a wide complex tachycardia with nonspecific ST changes. The EKG was faxed immediately to the trade embalmer Dr. Cannon who did not recommend immediate transfer catheter lab after reviewing the EKG and recommended us calling the floor infusion nurse Dr. Boland which we did so. We started him on a amiodarone drip after 150 mg IV bolus after 20 minutes there is no improvement of his tachycardia at that time Dr. Boland recommended IV Lopressor. After continued amiodarone drip and one dose of IV Lopressor 5mg the patient converted to sinus rhythm and immediately another EKG was taken. At that time I noticed ST elevation in the precordial leads and activated the STEMI alert. At this time Dr. Boland arrived in the ER to evaluate the patient patient was already given heparin aspirin continued on amiodarone drip no other recommendations were made at that time Dr. Boland also agreed with cardiac catheterization. At 1103 the Extension Service Supervisor was present to take the patient to the Extension Service Supervisor. - Differential Diagnosis Likely: stable angina, unstable angina pectoris, atypical chest pain, st elevation myocardial infraction, chest pain - Medical Records Medical records reviewed: Yes I reviewed the patient's medical records. - Lab Data Lab results reviewed: Yes I reviewed the patient's lab results. Result diagrams: 01/31/17 10:03 01/31/17 10:03 Lab Results 01/31/17 01/31/17 01/31/17 Range/Units 10:03 10:03 10:03 WBC 15.2 H (4.3-11.1) K/mcL RBC 4.74 (4.19-5.50) M/mcL Hgb 13.4 (12.9-16.9) g/dL Hct 41.5 (37.5-50.1) % MCV 87.6 (83.0-100.0) fL MCH 28.3 (28.0-33.3) pg MCHC 32.3 (31.6-35.5) g/dL RDW 12.8 (11.5-14.5) % Plt Count 398 (140-400) K/mcL MPV 11.0 (9.4-12.4) fL Immature Gran % 0.5 (0-4) % Seg Neutrophils % 63.7 % Lymphocytes % 27.9 % Monocytes % 6.1 % Eosinophils % 1.5 % Basophils % 0.3 % Neutrophils # 9.7 H (1.6-8.9) K/mcL Lymphocytes # 4.2 (0.6-4.6) K/mcL Monocytes # 0.9 (0.0-1.3) K/mcL Eosinophils # 0.2 (0.0-0.6) K/mcL Basophils # 0.0 (0.0-0.2) K/mcL Immature Plt Fraction 4.2 (1.1-6.1) % PT 10.3 (9.4-12.1) Seconds INR 1.0 APTT 31.4 (26.0-36.0) Seconds Sodium (136-145) mEq/L Potassium (3.5-4.5) mEq/L Chloride (98-109) mEq/L Carbon Dioxide (19-29) mEq/L BUN (8-26) mg/dL Creatinine (0.72-1.25) mg/dL Est GFR ( Amer) (> 60) Est GFR (Non-Af Amer) (> 60) BUN/Creatinine Ratio (6-26) Glucose (70-99) mg/dL Calculated Osmolality (280-300) Calcium (8.6-10.8) mg/dL Magnesium (1.6-2.6) mg/dL Troponin I (0-0.03) ng/mL B-Natriuretic Peptide 1330 H (0-100) pg/mL Lipase (8-78) Units/L 01/31/17 01/31/17 Range/Units 10:03 10:03 WBC (4.3-11.1) K/mcL RBC (4.19-5.50) M/mcL Hgb (12.9-16.9) g/dL Hct (37.5-50.1) % MCV (83.0-100.0) fL MCH (28.0-33.3) pg MCHC (31.6-35.5) g/dL RDW (11.5-14.5) % Plt Count (140-400) K/mcL MPV (9.4-12.4) fL Immature Gran % (0-4) % Seg Neutrophils % % Lymphocytes % % Monocytes % % Eosinophils % % Basophils % % Neutrophils # (1.6-8.9) K/mcL Lymphocytes # (0.6-4.6) K/mcL Monocytes # (0.0-1.3) K/mcL Eosinophils # (0.0-0.6) K/mcL Basophils # (0.0-0.2) K/mcL Immature Plt Fraction (1.1-6.1) % PT (9.4-12.1) Seconds INR APTT (26.0-36.0) Seconds Sodium 140 (136-145) mEq/L Potassium 4.5 (3.5-4.5) mEq/L Chloride 106 (98-109) mEq/L Carbon Dioxide 22 (19-29) mEq/L BUN 21 (8-26) mg/dL Creatinine 1.25 (0.72-1.25) mg/dL Est GFR ( Amer) > 60 (> 60) Est GFR (Non-Af Amer) > 60 (> 60) BUN/Creatinine Ratio 17 (6-26) Glucose 111 H (70-99) mg/dL Calculated Osmolality 294 (280-300) Calcium 9.0 (8.6-10.8) mg/dL Magnesium 2.1 (1.6-2.6) mg/dL Troponin I 2.29 H* (0-0.03) ng/mL B-Natriuretic Peptide (0-100) pg/mL Lipase 46 (8-78) Units/L - Radiology Data Radiology results reviewed: Yes I reviewed the patient's radiology results. - EKG Data EKG attestation: Yes I reviewed and interpreted this EKG. Rate: tachycardia Rhythm: other (Wide-complex) [place]/QRS: RBBB Interpretation: nonspecific ST-T wave changes Critical Care Time Critical Care Time: Yes Total Critical Care Time: 40 Attestation: The high probability of a clinically significant, sudden or life threatening deterioration of the [] system(s) required my full and direct attention, intervention and personal management. The aggregate critical care time was [] minutes. This time is in addition to time spent performing reported procedures but includes the following: [] Data Review and interpretation [] Patient assessment and monitoring of vital signs [] Documentation [] Medication orders and management
[2017-01-31] MEDS ORDERED: *HR* Heparin 5,000 UNIT/ML VIAL IVP ONE (10:32)
[2017-01-31] MEDS ORDERED: *HR* Heparin 5,000 UNIT/ML VIAL IVP PRN ×2 (10:32)
[2017-01-31] MEDS ORDERED: Heparin 25,000 UNIT/500 ML D5W 25,000 UNIT/500 ML MLS IVC SCH (10:45)
--- NOTE | 2017-01-31 10:50 | Cardiology Consult Note ---
Date of Encounter: 01/31/17 Time of Encounter: 10:46 Assessment and Plan Discussion w patient/family: The assessment and plan as outlined above was discussed with the patient and/or family members who expressed understanding and agreement. All questions were answered. Thank you for involving us in the care of your patient. Please call with any questions. History of Present Illness Consult date: 01/31/17 Consult reason: tachyarrythmia Chief complaint: Chest pain and SOB Past Med Surg Social Fam HX - Past Medical History Medical history: myocardial infarction Psychiatric history: no psych history - Past Surgical History Surgical History: no surgical history - Social History Smoking Status: Former smoker Smokeless Tobacco Status: Yes Alcohol use: occasionally Drug use: none Medications and Allergies Acetaminophen [Tylenol] 1,000 mg PO Q6HR PRN 01/17/17 [History] Aspirin 81 mg PO DAILY #30 tab.chew 01/19/17 [Rx] Lisinopril [Zestril] 2.5 mg PO DAILY #30 tablet 01/19/17 [Rx] Metoprolol XL (24 HR) Succ [Toprol Xl] 25 mg PO DAILY #30 tab.er.24h 01/19/17 [ Rx] Rosuvastatin [Crestor] 40 mg PO HS #30 tablet 01/19/17 [Rx] Ticagrelor [Brilinta] 90 mg PO BID #60 tablet 01/19/17 [Rx] Allergies No Known Allergies Allergy (Verified 01/17/17 11:14) All Systems Review: A 10-system review of systems was performed and is negative for pertinent findings except as documented above in the HPI. Physical Examination Vital Signs, Last 4 Hours Temp Pulse Resp BP Pulse Ox 01/31/17 10:28 185 20 114/76 99 01/31/17 09:57 98 01/31/17 09:53 98 F 180 20 140/96 98 Results 01/31/17 10:03 01/31/17 10:03 Lab Results 01/31/17 01/31/17 01/31/17 10:03 10:03 10:03 WBC 15.2 H Hgb 13.4 Hct 41.5 Plt Count 398 INR 1.0 APTT 31.4 Sodium Potassium Chloride Carbon Dioxide BUN Creatinine Glucose Calcium Magnesium Troponin I B-Natriuretic Peptide 1330 H Lipase 01/31/17 01/31/17 10:03 10:03 WBC Hgb Hct Plt Count INR APTT Sodium 140 Potassium 4.5 Chloride 106 Carbon Dioxide 22 BUN 21 Creatinine 1.25 Glucose 111 H Calcium 9.0 Magnesium 2.1 Troponin I 2.29 H* B-Natriuretic Peptide Lipase 46 Consult Discharge Plan - Plan Referrals: NO,PCP [Primary Care Provider] -
--- NOTE | 2017-01-31 10:54 | Cardiology History & Physical ---
Date of Encounter: 01/31/17 Time of Encounter: 10:50 Assessment and Plan (1) Wide-complex tachycardia Current Visit: Yes Status: Acute EKG reviewed with Dr. Boland possible SVT with aberrancy vs aflutter. Converted to NSR after receiving amiodarone and lopressor IV. Cannot rule out ventricular tachycardia in the setting of severe ischemic cardiomyopathy and recent MO. Potassium and magnesium are normal. Continue amiodarone gtt and beta- agustín. Monitor telemetry. We will review EKG with electrophysiology. [facility] recommended to r/o ischemic cause, troponin 2.29. Pt agrees. (2) NSTEMI (non-ST elevated myocardial infarction) Current Visit: Yes Status: Acute Troponin elevated 2.29, NSTEMI. [facility] recommended. Pt discussed with Dr. Boland. Recent MO 01/17/17 s/p PTCA and CARMELO to his pLAD, 50% stenosis in the mRCA at that time. Continue brilinta, asa, statin, and bb. Heparin GTT. (3) Cardiomyopathy Current Visit: Yes Status: Chronic LHC 01/17/17 EF 20%. TTE 01/18/17- EF 30-35%. BNP elevated, 1330. Chest x-ray negative. No significant fluid overload seen on exam. Continue toprol XL and zestril as tolerated. Low sodium diet and daily weights. Qualifiers: Cardiomyopathy type: ischemic Qualified Code(s): I25.5 - Ischemic cardiomyopathy (4) Leukocytosis Current Visit: No Status: Acute Mild leukocytosis, may be reactive. Denies cough or fever. Continue to monitor. Qualifiers: Leukocytosis type: unspecified Qualified Code(s): D72.829 - Elevated white blood cell count, unspecified History of Present Illness Chief complaint: Chest pain HPI: Mr. Hitchcock is a 46 year old male with a history of MO s/p PCI to his LAD on 01/17/17, ischemic cardiomyopathy , EF 20%who presented with the c/o chest pain and SOB starting at 0600 this morning. His initial EKG shows tachy-arrhythmia. He received amiodarone bolus 150 mg, started on amiodarone gtt, and given Lopressor 10 mg IV. He then converted to NSR. Troponin was elevated at 2.29. He is now chest pain free. Denies weight gain, edema, or orthopnea. Past Med Surg Social Fam HX - Past Medical History Medical history: cardiomyopathy, myocardial infarction Psychiatric history: no psych history - Past Surgical History Surgical History: no surgical history - Social History Smoking Status: Former smoker Smokeless Tobacco Status: Yes Alcohol use: occasionally Drug use: none Medications and Allergies Acetaminophen [Tylenol] 1,000 mg PO Q6HR PRN 01/17/17 [History] Aspirin 81 mg PO DAILY #30 tab.chew 01/19/17 [Rx] Lisinopril [Zestril] 2.5 mg PO DAILY #30 tablet 01/19/17 [Rx] Metoprolol XL (24 HR) Succ [Toprol Xl] 25 mg PO DAILY #30 tab.er.24h 01/19/17 [ Rx] Rosuvastatin [Crestor] 40 mg PO HS #30 tablet 01/19/17 [Rx] Ticagrelor [Brilinta] 90 mg PO BID #60 tablet 01/19/17 [Rx] Allergies No Known Allergies Allergy (Verified 01/17/17 11:14) All Systems Review: A 10-system review of systems was performed and is negative for pertinent findings except as documented above in the HPI. Physical Examination Vital Signs, Last 4 Hours Temp Pulse Resp BP Pulse Ox 01/31/17 10:28 185 20 114/76 99 01/31/17 09:57 98 01/31/17 09:53 98 F 180 20 140/96 98 General: Conversant, No Apparent Distress, Other (diaphoretic) HEENT: Atraumatic, Normocephaly, Mucus Membranes Moist Neck: No JVD, Normal carotid pulses Cardiac: Reg Rate and Rhythm, Normal S1 and S2, No Murmur Lungs: Normal Breath Sounds, No Wheeze, Rales, Rhonchi Neuro: Alert and responsive, No focal deficits noted Abdomen: Soft, Non-Tender Skin: No rashes noted on visualized skin Musculoskeletal: No Chest Wall Tenderness Extremities: No Clubbing, No Cyanosis, No Edema, Normal Pulses Results 01/31/17 10:03 01/31/17 10:03 Lab Results 01/31/17 01/31/17 01/31/17 10:03 10:03 10:03 WBC 15.2 H Hgb 13.4 Hct 41.5 Plt Count 398 INR 1.0 APTT 31.4 Sodium Potassium Chloride Carbon Dioxide BUN Creatinine Glucose Calcium Magnesium Troponin I B-Natriuretic Peptide 1330 H Lipase 01/31/17 01/31/17 10:03 10:03 WBC Hgb Hct Plt Count INR APTT Sodium 140 Potassium 4.5 Chloride 106 Carbon Dioxide 22 BUN 21 Creatinine 1.25 Glucose 111 H Calcium 9.0 Magnesium 2.1 Troponin I 2.29 H* B-Natriuretic Peptide Lipase 46 - Imaging and Cardiology Echo: report reviewed (EF30-35%) Cardiac cath: report reviewed
[2017-01-31] MEDS ORDERED: *HR* FentaNYL (PF) 100 MCG/2 ML VIAL ONE (10:56)
[2017-01-31] MEDS ORDERED: Tirofiban 5 MG/100ML 0 MG/0 ML BAG IV ONE (10:56)
[2017-01-31] MEDS ORDERED: *HR* Midazolam HCl 5 MG/5 ML VIAL IVP ONE (10:56)
--- NOTE | 2017-01-31 11:12 | Pre-Sedation Evaluation ---
Pre-sedation evaluation - Pre-sedation checklist Date of procedure: 01/31/17 Procedure: [facility] Recent Vitals: Last Vital Signs Temp 98 F 01/31/17 09:53 Pulse 80 01/31/17 11:01 Resp 20 01/31/17 11:01 BP 106/78 01/31/17 11:01 Pulse Ox 99 01/31/17 11:01 H&P (including ROS) documented in medical record: Yes Previous reaction to sedatives/anesthetics: No Dietary Status: unknown Airway Assessment: Patient can open mouth completely, TMJ function normal ASA Classification *see protocol: CLASS II-Mild systemic disease Plan of Care: Pt appropriate candidate for procedure/moderate/conscious sedation , Risks/benefits of procedure/sedation discussed w/ patient/family
[2017-01-31] MEDS ORDERED: Acetaminophen 325 MG TABLET PO PRN (11:38)
[2017-01-31] MEDS ORDERED: Naloxone 0.4 MG/ML INJ IVP PRN (11:38)
[2017-01-31] MEDS ORDERED: Heparin 1,000 UNITS/500 mL NS 500 ML ONE (11:41)
[2017-01-31] MEDS ORDERED: Verapamil 5 MG/2 ML VIAL ONE (11:41)
[2017-01-31] MEDS ORDERED: Nitroglycerin 1,000 MCG/10 ML VIAL IV ONE (11:41)
[2017-01-31] MEDS ORDERED: *HR* Heparin 10,000 UNIT/10 ML VIAL ONE (11:41)
--- NOTE | 2017-01-31 11:50 | Invasive Diagnostic Lab Proc ---
Name: Zak Hitchcock Date of Study: 01/31/2017 Date: 1970 Ht: 72.0in Medical Record#: [id number] Age: 46 Wt: 310.63lb Gender: Male BSA: 2.57 Order #: [id number] BMI: 42.12 Physicians Procedure Physician: Bran Cannon MD, [facility] Referring MD: Referring MD: Staff Name Position Time In Sites, [facility] RT (R) 11:17 AM CarolJanel RT (R) Scrub 11:17 AM Christiana Magallon RN [place] 11:17 AM Melina Monreal RN [place] 11:17 AM Indications Indication Non-Stemi Procedures Performed Procedure L HRT ARTERY/VENTRICLE ANGIO Pre-Procedure Checklist Informed consent is complete signed and on chart. H\\T\\P is on chart. ID band is on and ID verified with patient. Patient NPO for procedure The procedure was described for the patient and questions were answered. Blood Pressure: 126/75 ECG is on chart. Rhythm: NSR Plan of Care Patient will tolerate the procedure without complications. Adequate level of comfort will be maintained. Hemodynamics will remain stable Patient will recover from procedure without complications. Respiratory function will be maintained. Cardiac rhythm will remain stable. Patient temperature will be maintained. Patient and/or family have verbalized understanding of the procedure. Patient Education Chief Complaint/Reason for Test: Cardiac Cath Developmental Category: Adult (18-64 years) Developmentally Appropriate for Age: Yes Learning Barriers: None Education Needs: Procedure Education Method: Verbal Information Taught: Cardiac Cath Educational Evaluation: Able to repeat information Intravenous Access Time IV Size Location DC'd Fluid/Drip Rate Units RN 18g 1 1/4" Patent On Arrival Lt Antecubital 0.9NaCl 25 ml/hr Melina Monreal RN 18g 1 1/4" Patent On Arrival Rt Antecubital Amiodarone 33.3 Allergies No Known Allergies Vital Signs Time BP (mmHg) HR (bpm) O2 Sat. RR (bpm) LOC 11:31 AM 108 / 63 77 % 19 11:16 AM 126 / 75 78 96 % 11:21 AM 99 / 60 80 93 % 3 11:26 AM 105 / 55 80 96 % 26 126 / 75 78 97 % 18 5 = Fully awake and oriented or at pre-proc level Procedural Medications Time Medication Dose Units Method Given By 11:16 AM Lidocaine 2% 0.5 ml Subcutaneous Bran Cannon MD, [facility] 11:17 AM Oxygen 2 L/min nasal cannula Melina Monreal RN 11:18 AM Versed 2 mg Intravenous Melina Monreal RN 11:18 AM Fentanyl 50 mcg Intravenous Melina Monreal RN 11:18 AM Nitroglycerin 200 mcg Verapamil 2.5 mg Intraarterial Bran Cannon MD, [facility] ASA Classification: Emergent Procedure: ASA score is assumed Lenora Score Preprocedure Postprocedure Activity 2- Moves 4 extremities sustained head lift Activity 2- Moves 4 extremities sustained head lift Circulation 2- SBP +/= 20 points of pre-anesthetic level Circulation 2- SBP +/= 20 points of pre-anesthetic level Consciousness 2- Awake and alert oriented x 3 Consciousness 2- Awake and alert oriented x 3 O2 Saturation 2- Able to maintain O2 satruation of 92% on room air O2 Saturation 2- Able to maintain O2 satruation of 92% on room air Respiratory 2- Able to deep breathe and cough well Respiratory 2- Able to deep breathe and cough well Total Score 10 Total Score 10 Contrast Agent: Isovue Diagnostic Contrast: 61 ml Total Contrast: 61 ml Fluoro Dose: 259 mGy Procedure Log Time Note Enter By 10:58 AM CathStat 11:08 AM Pt arrived to ballistics laboratory [facility] 2 at 11:08 tsites 11:15 AM Vitals capture started with the following parameters, Patient=Adult, Interval=5 min, Initial Hjacuuxe=894 mmHg, Deflation Rate=5 mmHg, Cuff placed on Left Arm 11:16 AM HR=78 bpm, HGJN=858/75 mmhg, SpO2=96.0 % 11:16 AM Patient charges- Angio tray pack, Navilyst 3mm J, Pulse Oximetry and ACIST tubing and transducer tsites 11:16 AM Case Delayed No tsites 11:16 AM Physician arrived 11:16 tsites 11:16 AM Meet and greet completed tsites 11:16 AM Procedure start 11:16 tsites 11:16 AM Time out performed according to hospital policy tsites 11:17 AM Time: 11:16 0.5 ml Lidocaine 2% to right radial Subcutaneous Given by Bran Cannon MD, [facility] tsites 11:17 AM Alexandra, Shreya RT (R) Position: Monitor Time in: 11:17 tsites 11:17 AM Janel Medina RT (R) Position: Scrub Time in: 11:17 tsites 11:17 AM Christiana Magallon RN Position: [place] Time in: 11:17 tsites 11:17 AM Melina Monreal RN Position: [place] Time in: :17 tsites 11:17 AM Time: 11:17 Oxygen on at 2 L/min per nasal cannula by Melina Monreal RN tsites 11:18 AM Time: 11:18 Versed 2 mg Intravenous Given by Melina Monreal RN tsites 11:18 AM Time: 11:18 Fentanyl 50 mcg Intravenous Given by Melina Monreal RN tsites 11:18 AM Access obtained by percutaneous puncture. 5Fr 10cm Terumo Glidesheath sheath placed in right Radial artery. [id number] tsites 11:18 AM Time: 11:18 Patient given 200 mcg Nitroglycerin, and 2.5 mg Verapamil Intraarterial by Bran Cannon MD, [facility] tsites 11:18 AM 5Fr FR 4 catheter inserted over the wire [facility] tsites 11:18 AM 0.035 260cm Navilyst 3mmJ wire [id number] tsites 11:19 AM Wire removed tsites 11:19 AM RCA angiography performed in multiple views. tsites 11:19 AM Recorded Pressure: Ao, HR=83, Condition=Condition 1 (Aorta) Ao 90/78/84 11:20 AM wire reinserted catheter removed tsites 11:20 AM Pressure channel 1 zeroed. 11:20 AM 5Fr FL3.5 catheter inserted over the wire [id number] tsites 11:21 AM HR=80 bpm, NIBP=99/60 mmhg, SpO2=93 %, Resp=3 B/min 11:21 AM Recorded ECG: HR=82 Condition=Condition 1 11:21 AM LCA angiography performed in multiple views. tsites 11:21 AM Recorded Pressure: Ao, HR=82, Condition=Condition 1 (Aorta) Ao 98/74/83 11:22 AM Lesion found in Mid LAD. Pre Stenosis: 30 Pre CHARMAINE Flow: tsites 11:22 AM Lesion found in Mid Circumflex. Pre Stenosis: 30 Pre CHARMAINE Flow: tsites 11:22 AM Lesion found in Distal Circumflex. Pre Stenosis: 40 Pre CHARMAINE Flow: tsites 11:23 AM Lesion found in Left PDA. Pre Stenosis: 15 Pre CHARMAINE Flow: tsites 11:23 AM Coronary Dominance: Left tsites 11:23 AM Mid/Distal Left Anterior Descending Coronary Artery and diagonal branches with 30% stenosis. If graft is supplying this area, 0 % stenosis tsites 11:23 AM Circumflex, Obtuse Marginal, Left Posterior Descending, and Left Posterolateral Coronary Arteries with 40 % stenosis. If graft is supplying this area, 0 % stenosis tsites 11:24 AM Recorded Pressure: LV, HR=84, Condition=Condition 1 (Left Ventricle) LV 86/09/22 11:24 AM Recorded Pressure: LV, HR=86, Condition=Condition 1 (Left Ventricle) LV 76/18/20 11:24 AM Recorded Pressure: LV, QL=392, Condition=Condition 1 (Left Ventricle) LV 80/19/31 11:25 AM Recorded Pressure: LV, Ao, HR=78, Condition=Condition 1 (Left Ventricle) LV 91//, (Aorta) Ao ?/?/? 11:26 AM HR=80 bpm, HUQZ=626/55 mmhg, SpO2=96.0 %, Resp=26 B/min 11:28 AM Catheter removed tsites 11:28 AM 5Fr Pigtail catheter inserted over the wire [facility] tsites 11:28 AM Catheter selectively placed in left ventricle tsites 11:28 AM Bolus angiogram of left Ventricle complete: 10 ml/sec for a total of 24 mls tsites 11:28 AM Catheter removed tsites 11:28 AM Procedure completed at 11:28 tsites 11:29 AM Sign out completed: Radiation Dose 259 mGy Fluoro Time: 1.0 Isovue 370 - 200ml contrast 61.3 ml given by Bran Cannon MD, [facility]. Complications: NoneCardiac Rehab Consult needed: YesConfirmed administered medications: Yes tsites 11:29 AM Isovue 370 - 500ml,1 Bottle(s) used. tsites 11:29 AM Arterial sheath pulled, Vasc Band closure device used and was Successful S/N. tsites 11:29 AM 10 ml air in Vasc Band. tsites 11:30 AM Post ECG NSR tsites 11:30 AM Post Blood Pressure 105/55 tsites 11:30 AM 11:30 Post Pulses Rt Radial 1+ tsites 11:30 AM Information taught Cardiac Cath tsites 11:30 AM Education needs Procedure, Plan of Care, and Responsibilities of Patient in Care tsites 11:31 AM Learning barriers :None tsites 11:31 AM HR=77 bpm, PEFY=100/63 mmhg, Resp=19 B/min 11:31 AM Education Methods Verbal tsites 11:31 AM Education evaluation Able to repeat information tsites 11:31 AM Site status No bleeding/hematoma - Rt Wrist as reported by Janel Medina RT (R) at 11:31 tsites 11:33 AM Lesion found in Mid RCA. Pre Stenosis: 60 Pre CHARMAINE Flow: tsites 11:36 AM Report given to aleyda RN Pt taken to ICU Room #10. 11:36 tsites 11:37 AM Delay to floor No tsites 11:37 AM Patient out of room: 11:37 tsites 11:37 AM Family placed in consult room. tsites Complications Complication None Hemodynamics Pressures Site Systolic/A Wave Diastolic/V Wave Mean AO 90 78 84 AO 98 74 83 LV 86 11 23 LV 76 18 20 LV 80 19 31 LV 91 12 26 AO Post Procedure Information Blood Pressure: 105/55 mmHg Rhythm: NSR Post procedural instructions were given Closure Device Time Device Success/Fail 01/31/2017 11:38:00 AM Mechanical Compression Successful Site Checks Time Location Status Staff Sheath In? Note 11:31 AM Rt Wrist No bleeding/hematoma Janel Medina RT (R) Pulses Time Site Pre-Procedure Post-Procedure Note Bilateral DP \\T\\ PT 2+ 11:30:00 AM Rt Radial 1+ Updated by Shreya Morris RT (R) on 01/31/2017 11:42:02 AM Shreya Morris RT electronically signed on 01/31/2017 11:46:24 AM with status of Final
--- NOTE | 2017-01-31 12:02 | Electrocardiograph Report ---
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
--- NOTE | 2017-01-31 15:25 | Electrocardiograph Report ---
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
[2017-01-31] MEDS ORDERED: Amiodarone Premix 360 MG/200 ML BAG IVC ONE (16:32)
[2017-01-31] MEDS ORDERED: *HR* Adenosine 6 MG/2 ML VIAL IVP ONE ×2 (16:34→16:39)
--- NOTE | 2017-01-31 17:09 | Event Note ---
Date of Encounter: 01/31/17 Time of Encounter: 16:30 - Cardiology Event Note Seen at bedside with wide complex tachycardia. Patient with mild shortness of breath. Alert and oriented 3. Systolic blood pressure stable number 100s to 110s. Denied any chest pain or palpitations. Dr. Boland called to bedside and patient status post adenosine 6mg push followed by 12 mg push with no significant rhythm changes. Patient also received Lopressor 2.5 mg IV 1. Remains in wide complex tachycardia with heart rate in the 160s to 170s. Amiodarone continues to infuse at 1 mg/min. Dr. Boland at bedside and will discuss with [facility] EP for possible transfer.
--- NOTE | 2017-01-31 17:40 | Event Note ---
Date of Encounter: 01/31/17 Time of Encounter: 17:37 Patient seen and exmanied a short while ago. Return of wide complex tachycardia. Very difficult to distinguish if SVT with aberrancy or VT. Patient given 6 mg, then 12 mg of adenosine - no effect on rhythm. Patient given Lopressor IV and converted back to NSR. Patient stable throughout the entire process. Given recurrence of this rhythm in setting of recent [place], recommend referral to tertiary center for possible EP evaluation. Discussed with [facility] transfer center and Dr. Romero, who accepted transfer. Discussed with patient, who is agreeable to this plan.
--- NOTE | 2017-01-31 17:47 | Transfer Summary ---
Date of Encounter: 01/31/17 Time of Encounter: 17:41 Transfer Discharge Sum: Diag - Discharge Diagnosis (1) Ischemic cardiomyopathy Status: Acute Problem details: Recent STEMI s/p PCI to LAD with CARMELO 2016. (2) STEMI (ST elevation myocardial infarction) Status: Acute Problem details: STEMI 01/17/2017. (3) NSTEMI (non-ST elevated myocardial infarction) Status: Acute Problem details: Elevated troponin today in setting of tachycardia, stable CAD. (4) Wide-complex tachycardia Status: Acute Problem details: SVT with aberrancy versus VT. Continue amiodarone and BB. Maintain K > 4, Mg > 2. Transfer to [facility] for possible EPS arranged. Transfer Discharge Sum: Med - Medications Active and Home Medications: Home Medications Acetaminophen [Tylenol] 1,000 mg PO Q6HR PRN 01/17/17 [History Confirmed ] Aspirin 81 mg PO DAILY #30 tab.chew 01/19/17 [Rx] Lisinopril [Zestril] 2.5 mg PO DAILY #30 tablet 01/19/17 [Rx] Metoprolol XL (24 HR) Succ [Toprol Xl] 25 mg PO DAILY #30 tab.er.24h 01/19/17 [ Rx] Rosuvastatin [Crestor] 40 mg PO HS #30 tablet 01/19/17 [Rx] Ticagrelor [Brilinta] 90 mg PO BID #60 tablet 01/19/17 [Rx] Active Medications Acetaminophen (Tylenol) 650 mg PO Q6HR PRN PRN Reason: Mild Pain (1-3) Stop: 08/02/17 11:39 Aspirin (Aspirin) 81 mg PO DAILY MAURICIO Stop: 08/03/17 09:01 Heparin Sodium (Porcine) (Heparin) 4,000 unit IVP Q6HR PRN PRN Reason: SEE COMMENTS Stop: 08/02/17 10:33 Heparin Sodium (Porcine) (Heparin) 2,000 unit IVP Q6H PRN PRN Reason: SEE COMMENTS Stop: 08/02/17 10:33 Heparin Sodium/Dextrose (Heparin 25,000 Unit/500 Ml D5w) 25,000 unit in 500 mls @ 19.983 mls/hr IVC .Q24H MAURICIO; 7.06 UNIT/KG/HR PRN Reason: Protocol Stop: 08/02/17 10:46 Last Titration: 01/31/17 11:09 Dose: 0 unit/kg/hr, 0 mls/hr Lisinopril (Zestril) 2.5 mg PO DAILY MAURICIO PRN Reason: Protocol Stop: 08/02/17 11:46 Metoprolol Succinate (Toprol Xl) 25 mg PO DAILY [facility] Stop: 08/03/17 09:01 Naloxone HCl (Narcan) 0.4 mg IVP Q2MIN PRN PRN Reason: Opioid Reversal Stop: 08/02/17 11:39 Rosuvastatin Calcium (Crestor) 40 mg PO HS MAURICIO Stop: 08/02/17 21:01 Ticagrelor (Brilinta) 90 mg PO BID [facility] Stop: 08/02/17 21:01 Transfer Discharge Sum: Data Procedures and tests throughout hospitalization: Pending Orders 01/31/17 11:31 Bed rest w/bathroom privileges [RC] .ONCE Communication order [RC] Sheath management 1 [RC] ONCE Vital Signs Assessment [RC] Q4H Advance Diet as Tolerated Routine 01/31/17 11:38 Peripheral IV [RC] Placement to Observation Routine Acetaminophen [Tylenol] 650 mg PO Q6HR PRN Naloxone [Narcan] 0.4 mg IVP Q2MIN PRN Resuscitation Status: Active [RES] Routine 01/31/17 11:40 Cardiac Monitoring Med/Surg [RC] .CONT 01/31/17 11:41 Measure intake and output [RC] QSHIFT Measure weight [RC] 0400 01/31/17 11:45 Lisinopril [Zestril] 2.5 mg PO DAILY 01/31/17 21:00 Rosuvastatin [Crestor] 40 mg PO HS Ticagrelor [Brilinta] 90 mg PO BID 02/01/17 04:00 Basic Metabolic Panel AM 0400 Complete Blood Count [HEME] AM 0400 02/01/17 09:00 Aspirin 81 mg PO DAILY Metoprolol XL (24 HR) Succ [Toprol XL] 25 mg PO DAILY Transfer Discharge Sum: Prov Date of admission: 01/31/17 10:53 Primary care physician: PCP NO Admitting clinician: Fernando Boland Attending physician on admission: Fernando Boland Consults: None Attending physician on discharge: Fernando Boland Discharging clinician: Fernando Boland Anticipated date of transfer: 01/31/17 Receiving physician/facility: [facility] Transfer Discharge Sum: A/P - Plan Functional capacity at transfer: independent ambulation Overall status at transfer: patient is not back to baseline Disposition: Admitted As Inpatient Transfer Discharge Sum: Hosp Hospital course: 46 year old male recent STEMI 01/17/2017 s/p PCI to LAD. Resultant ischemic CMP. Presented with acute onset chest discomfort and dyspnea. HR in 170s. ECG demonstrated wide complex tachycardia. Elevated troponin. Amiodarone started - tachycardia persisted. Patient remained stable, so lopressor IV given. Patient did convert back to NSR. Cardiac catheterization performed - LAD stent patent. EF remains severely reduced. Short while ago, converted back to wide complex tachycardia. Given possiblity for SVT with aberrancy, adenosine given (6 mg and 12 mg) without change in rhythm. Lopressor given, conversion to NSR after a few minutes. Discussed with [facility]. Recommend transfer there for possible EPS. Patient agrees with this plan. [facility], Dr. Romero accepted. - Time Spent with Patient Total time spent providing and/or coordinating transfer services: Greater than 30 minutes Transfer Discharge Sum: Exam - Constitutional Vitals: Vital Signs Temp Pulse Resp BP Pulse Ox 01/31/17 16:00 69 16 117/86 95 01/31/17 14:58 97.4 F L 69 18 108/86 96 01/31/17 14:32 68 16 108/85 95 01/31/17 14:15 70 16 110/81 94 01/31/17 14:00 69 18 116/80 97 01/31/17 13:30 69 18 106/80 98 01/31/17 13:15 68 18 105/79 96 01/31/17 13:00 70 18 99/64 95 01/31/17 12:45 67 18 112/84 98 01/31/17 12:30 67 16 112/81 01/31/17 12:15 70 18 103/93 98 01/31/17 12:11 73 01/31/17 12:00 73 18 98/82 97 01/31/17 11:45 74 18 105/76 97 01/31/17 11:14 20 106/78 01/31/17 11:01 80 20 106/78 99 Intake and Output 01/31/17 01/31/17 01/31/17 07:59 15:59 23:59 Intake Total 43.3 / 43.3 0 / 0 Output Total 450 / 450 Balance 43.3 / 43.3 -450 / -450 Intake: IV Fluids 43.3 / 43.3 Heparin 25,000 UNIT/500 10 / 10 ML D5W 25,000 unit In 500 ml @ 7.06 UNIT/KG/HR 19. 983 mls/hr IVC .Q24H [facility] Rx#:[id number] Cordarone 360 MG In 33.3 / 33.3 Dextrose 5% 200 ML @ 33.3 mls/hr IVPB ONCE ONE Rx# :[id number] Oral 0 / 0 Output: Urine 450 / 450 - Head Head exam: Present: atraumatic - VTE Reasons for not Prescribing Prophylaxis: Not indicated-Anticoagulated or INR therapeutic
[2017-01-31 19:43] VITALS: BP 101/61
[2017-01-31] MEDS ORDERED: *HR* Amiodarone 150 MG/3 ML VIAL IVPB ONE (20:05)
[2017-01-31] MEDS ORDERED: *HR* Amiodarone Premix 360 MG/200 ML BAG IVC ONE (20:05)
[2017-01-31] MEDS ORDERED: *HR* Ticagrelor 90 MG TABLET PO SCH (21:00)
[2017-02-01] MEDS ORDERED: Aspirin 81 MG TAB.CHEW PO SCH (09:00)
[2017-02-01] MEDS ORDERED: Metoprolol XL (24 HR) Succ 25 MG TAB.ER.24H PO SCH (09:00)
--- NOTE | 2017-02-01 17:35 | Electrocardiograph Report ---
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
--- NOTE | 2017-02-02 12:02 | Electrocardiograph Report ---
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
--- NOTE | 2017-02-02 12:02 | Electrocardiograph Report ---
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
--- NOTE | 2017-02-02 12:02 | Electrocardiograph Report ---
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
--- NOTE | 2017-02-02 12:03 | Electrocardiograph Report ---
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
--- NOTE | 2017-02-02 12:03 | Electrocardiograph Report ---
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
--- NOTE | 2017-02-03 11:44 | Invasive Diagnostic Lab ---
Name: Zak Hitchcock Date of Study: 01/31/2017 Date: 1970 Ht: 182.9 cm /72.0 in Medical Record#: [id number] Age: 46 Wt: 140.9 kg / 310.63 lb Account/Order#: [id number] Gender: Male BSA: 2.57 Order #: [id number] Fluoro Dose: 259 mGy BMI: 42.12 Procedure Physician: Bran Cannon MD, FACC Referring MD: Referring MD: Procedures Performed: LEFT HEART CATH Indications: Non-Stemi Impressions: There is moderate coronary artery disease. LV- Lower limits of normal, EF20% Stent placed from a prior procedure in the Left Anterior Descending is patent. Recommendations: Optimal medical therapy of patient's disease. Aggressive risk factor modification. Patient being referred for cardiac rehab. History/Risk Factors: Hypertension Current/Recent Smoker Prior [place] Previous PCI Date: 01/17/2017 Procedure Access obtained in the right Radial artery by percutaneous puncture Complications: None Contrast: Isovue 61ml Closure Device: Mechanical Compression Hemodynamics: Pressures Site Systolic/ A Wave Diastolic/ V Wave End Diastolic/ Mean HR AO 90 78 84 83 AO 98 74 83 82 LV 86 11 23 84 LV 76 18 20 86 LV 80 19 31 120 LV 91 12 26 78 AO 0 LV Ventriculography Ejection Method: LV Gram Ejection Fraction: 20% Wall Motion: WISE Anterobasal Normal Anterolateral Normal Apical: Normal Inferoapical Normal Inferobasal Severe Hypokinesis Coronary Dominance: Left Lesion Findings/Interventions * Left Main Coronary Artery The LMCA is angiographically free of disease. * Left Anterior Descending The Left Anterior Descending has patent stents present from a previous procedure. There is a 30% stenosis in the Mid LAD. * Circumflex There is a 30% stenosis in the Mid Circumflex. There is a 40% stenosis in the Distal Circumflex. There is a 15% stenosis in the Left PDA. * Right Coronary Artery There is a 50-60% stenosis in the Mid RCA. Updated by RT Rocio (R) on 01/31/2017 11:42:33 AM Bran Cannon MD, FACC electronically signed on 02/03/2017 11:39:12 AM with status of Final
== END 2017-01-31 20:06 | disposition short-term general hospital (02) ==
LOC: EMEROO 09:47 → ICNU 09:47 → 2NNU 14:53
PROVIDERS: ADMIT Emergency Medicine; ATTEND Emergency Medicine

== ENCOUNTER 2018-02-21 13:00 | Observation (INO) ==
[2018-02-21] MEDS ORDERED: Aspirin 81 MG TAB.CHEW PO ONE (13:10)
--- NOTE | 2018-02-21 13:30 | Emergency Department Note ---
Disposition Clinical Impression: Shortness of breath, AICD (automatic cardioverter/defibrillator) present, History of heart artery stent, Unstable angina Chest pain Qualifiers: Chest pain type: unspecified Qualified Code(s): R07.9 - Chest pain, unspecified Disposition: Admitted As Inpatient Condition: Good Time of Disposition: 15:15 General Adult HPI - General Chief complaint: ED Chest Pain Stated complaint: CP Time Seen by Provider: 02/21/18 13:03 Source: patient Mode of arrival: ambulatory Limitations: no limitations Nursing Notes Reviewed: Yes Vital Signs Reviewed: Yes - History of Present Illness HPI Narrative: Patient is a 47-year-old male that presents the emergency department chest pain. He said that it began approximately at 10:30 this morning. States that he had some dull chest pain on the left side of his chest with associated shortness of breath. States that it also is gone into his neck and his left arm. States that this feels just like when he had a previous CO approximately one year ago. Patient states that he does have a stent placed in his maker and is had an ablation with a defibrillator placed also proximally 1 year ago. Patient states that his pain is a 6 out of 10. Patient reports associated shortness of breath with his chest pain. Patient states that his chest pain has been intermittent. Patient denies taking any nitroglycerin but does state that he took a baby aspirin this morning with his regular meds. Pain Scale: 6 - Related Data Home Medications Medication Instructions Recorded Confirmed Furosemide [Lasix] 20 mg PO DAILY 05/05/17 02/21/18 Metoprolol XL (24 HR) Succ [Toprol 50 mg PO DAILY 05/05/17 02/21/18 Xl] Spironolactone [Aldactone] 25 mg PO BID 05/05/17 02/21/18 Previous Rx's Medication Instructions Recorded Aspirin 81 mg PO DAILY #30 tab.chew 01/19/17 Lisinopril [Zestril] 2.5 mg PO DAILY #30 tablet 01/19/17 Rosuvastatin [Crestor] 40 mg PO HS #30 tablet 01/19/17 Ticagrelor [Brilinta] 90 mg PO BID #60 tablet 01/19/17 Allergies Allergy/AdvReac Type Severity Reaction Status Date / Time Penicillins Allergy Unknown Unkown Verified 02/21/18 13:02 All systems ED: reviewed and negative except as stated. Cardiovascular: Reports: chest pain Respiratory: Reports: dyspnea Past Medical History - Past Medical History Medical history: Reports: cardiomyopathy, coronary artery disease, fibromyalgia , hyperlipidemia, hypertension, myocardial infarction, SVT Surgical history: Reports: no surgical history Psychiatric history: Reports: no psych history - Social History Smoking Status: Former smoker Smokeless Tobacco Status: No Alcohol use: Reports: none Drug use: Reports: none Physical Exam - General Limitations: no limitations General appearance: alert, in no apparent distress - Head Head exam: atraumatic, normocephalic - Eye Eye exam: Present: normal appearance, EOMI - Neck Neck exam: Present: normal inspection, full ROM, trachea midline - Respiratory Respiratory exam: Present: normal lung sounds bilaterally. Absent: respiratory distress, wheezes - Cardiovascular Cardiovascular exam: Present: regular rate, normal rhythm, normal heart sounds, +S1, +S2 - Abdominal Exam Abdominal exam: Present: soft, Non-Tender, normal bowel sounds - Neurological Exam Neurological exam: Present: alert, oriented X3 - Psychiatric Psychiatric exam: Present: normal affect, normal mood - Skin Skin exam: Present: warm, dry, intact Course Vital Signs Temperature 98.2 F 02/21/18 13:01 Pulse Rate 86 02/21/18 13:01 Respiratory Rate 22 02/21/18 13:01 Blood Pressure 154/92 02/21/18 13:01 O2 Sat by Pulse Oximetry 97 02/21/18 13:01 Temperature 98.2 F 02/21/18 13:06 Pulse Rate 72 02/21/18 15:26 Respiratory Rate 14 02/21/18 15:26 Blood Pressure 133/90 02/21/18 15:26 O2 Sat by Pulse Oximetry 95 02/21/18 15:26 Oxygen Delivery Oxygen Delivery Room Air Medical Decision Making - [facility] Narrative Medical decision making narrative: Due to the patient presenting with chest pain that is similar to previous cardiac events there is concern for possible cardiac involvement with the lesions chest pain. To evaluate this patient will obtain a CBC, BMP, troponin, chest x-ray and EKG. We also did give the patient a dose of aspirin as well as a nitroglycerin trial. The patient will likely need to be admitted to the hospital for further evaluation and management. Patient's laboratory testing was unremarkable. EKG shows sinus rhythm without evidence of STEMI. Chest x- ray was clear. Due to the patient's significant cardiac history complaining symptoms I feel that the patient is in need of hospitalization for further evaluation and management. I called and spoke the hospitals name except for the patient to their service. The hospitalist Dr Gan did request that ACS heparin be started. ACS heparin has been ordered and the patient will be admitted to the hospital at this time. - Medical Records Medical records reviewed: Yes I reviewed the patient's medical records. - Lab Data Lab results reviewed: Yes I reviewed the patient's lab results. Result diagrams: 02/21/18 13:20 02/21/18 13:20 Lab Results 02/21/18 02/21/18 02/21/18 Range/Units 13:20 13:20 13:20 WBC 10.9 (4.3-11.1) K/mcL RBC 5.43 (4.19-5.50) M/mcL Hgb 15.3 (12.9-16.9) g/dL Hct 46.0 (37.5-50.1) % MCV 84.7 (83.0-100.0) fL MCH 28.2 (28.0-33.3) pg MCHC 33.3 (31.6-35.5) g/dL RDW 13.2 (11.5-14.5) % Plt Count 256 (140-400) K/mcL MPV 11.6 (9.4-12.4) fL Immature Gran % 0.6 (0-4) % Seg Neutrophils % 66.7 % Lymphocytes % 24.9 % Monocytes % 6.0 % Eosinophils % 1.3 % Basophils % 0.5 % Neutrophils # 7.3 (1.6-8.9) K/mcL Lymphocytes # 2.7 (0.6-4.6) K/mcL Monocytes # 0.7 (0.0-1.3) K/mcL Eosinophils # 0.1 (0.0-0.6) K/mcL Basophils # 0.1 (0.0-0.2) K/mcL PT 11.2 (9.4-12.1) Seconds INR 1.0 APTT 30.0 (26.0-36.0) Seconds Sodium 136 (136-145) mEq/L Potassium 3.5 (3.5-5.1) mEq/L Chloride 99 (98-107) mEq/L Carbon Dioxide 27 (23-29) mEq/L BUN 14 (6-20) mg/dL Creatinine 1.23 (0.70-1.30) mg/dL Est GFR ( Amer) > 60 (> 60) Est GFR (Non-Af Amer) > 60 (> 60) BUN/Creatinine Ratio 11 (6-26) Glucose 148 H (70-105) mg/dL Calculated Osmolality 285 (280-300) Calcium 9.6 (8.6-10.3) mg/dL Troponin I 0.03 (< 0.04) ng/mL - Radiology Data Radiology results reviewed: Yes I reviewed the patient's radiology results. Chest X-Ray 02/21/18 13:10 IMPRESSION: No acute airspace disease identified. Status post left subclavian ICD placement. D/ / Italo Winters / Italo Winters Interpreting Provider: Italo Winters - EKG Data EKG #1 EKG attestation: Yes I reviewed and interpreted this EKG. EKG results narrative: EKG shows sinus rhythm at a rate of 83 bpm, CA interval of 202, QRS duration of 118, QTC of 437 with a normal axis. There is no evidence of STEMI on EKG at this time. This was compared to previous EKG on 01/31/17 which showed a sinus rhythm at [address] elevations in the anterior leads. Attestation Statement - Attestation Attestation: I examined this patient and my medical decision-making was reviewed with the Resident Physician, Dr. Sanchez. I agree with the documented findings, disposition and treatment plan as described except to the extent set forth below. Patient is a 47-year-old white male with a significant past history of prior CO with stent placement to the LAD as well as subsequent AICD placement in the past year who presents with substernal nonradiating chest discomfort and shortness of breath since 10:30 this morning while at work. Patient has been having intermittent symptoms of pain with exertion over the past 4 days but the worst episode was this morning. Patient still having pain on arrival to the ED but denies any diaphoresis nausea vomiting, no abdominal pain or flank pain, no lower cavity edema no other associated symptoms. Physical exam findings as documented. Vital signs are stable on arrival. EKG did not show any acute ST or T-wave changes and is sinus rhythm. Patient is pain-free after aspirin and 1 nitroglycerin some Nitropaste was ordered. Patient's laboratory evaluation and chest x-ray is within normal limits we will admit the patient for further evaluation for chest pain. Heparin will be started friend stable angina. Patient remains pain-free at this time.
[2018-02-21 13:31] LABS: Basophils # 0.1 K/mcL (0.0-0.2); Basophils % 0.5 %; Eosinophils # 0.1 K/mcL (0.0-0.6); Eosinophils % 1.3 %; Hemoglobin 15.3 g/dL (12.9-16.9); Immature Granulocytes % 0.6 % (0-4); Lymphocytes # 2.7 K/mcL (0.6-4.6); Lymphocytes % 24.9 %; Mean Corpuscular HGB Conc 33.3 g/dL (31.6-35.5); Mean Corpuscular Hemoglobin 28.2 pg (28.0-33.3); Mean Corpuscular Volume 84.7 fL (83.0-100.0); Mean Platelet Volume 11.6 fL (9.4-12.4); Monocytes # 0.7 K/mcL (0.0-1.3); Neutrophils # 7.3 K/mcL (1.6-8.9); Platelet Count 256 K/mcL (140-400); Red Blood Count 5.43 M/mcL (4.19-5.50); Red Cell Distribution Width 13.2 % (11.5-14.5); Segmented Neutrophils % 66.7 %
[2018-02-21] MEDS ORDERED: Nitroglycerin 0.4 MG TAB.SUBL SL PRN (13:32)
[2018-02-21 13:35] LABS: Prothrombin Time 11.2 Seconds (9.4-12.1)
[2018-02-21 13:54] LABS: Troponin I 0.03 ng/mL (< 0.04)
[2018-02-21 13:58] LABS: BUN/Creatinine Ratio 11 (6-26); Blood Urea Nitrogen 14 mg/dL (6-20); Calcium 9.6 mg/dL (8.6-10.3); Carbon Dioxide 27 mEq/L (23-29); Chloride 99 mEq/L (98-107); Glucose 148 mg/dL (70-105); Osmolality,Calculated 285 (280-300); Potassium 3.5 mEq/L (3.5-5.1); Sodium 136 mEq/L (136-145); eGFR For African Americans > 60 (> 60); eGFR For Non-African Americans > 60 (> 60)
[2018-02-21] MEDS ORDERED: Nitroglycerin 1 INCH/GM PACKET TP ONE (14:37)
[2018-02-21] MEDS ORDERED: *HR* Heparin 5,000 UNIT/ML VIAL IVP PRN (15:09)
[2018-02-21] MEDS ORDERED: *HR* Heparin 5,000 UNIT/ML VIAL IVP ONE (15:09)
[2018-02-21] MEDS: Heparin 25,000 UNIT/500 ML D5W 25,000 UNIT/500 ML BAG IVC SCH (16:00)
[2018-02-21] MEDS ORDERED: Naloxone 0.4 MG/ML INJ IVP PRN (18:07)
[2018-02-21] MEDS ORDERED: traMADol 50 MG TABLET PO PRN (18:07)
[2018-02-21] MEDS ORDERED: Acetaminophen 325 MG TABLET PO PRN (18:07)
--- NOTE | 2018-02-21 18:13 | Internal Med History&Physical ---
Addendum entered and electronically signed by Josué Bowles 02/21/18 19:26: Original Note: <Josué Bowles - Last Filed: 02/21/18 19:22> Date of Encounter: 02/21/18 Time of Encounter: 18:10 Internal Medicine - H&P: HPI Admitted From: Home Plans for Post Hospital Care: Home History of present illness: Patient is a 47-year-old male with past medical history of CAD with stent, CHF, hyperlipidemia, SVT status post ICD implant who presents the emergency department chest pain. He said that it began approximately at 10:30 this morning. States that he had some dull chest pain on the left side of his chest with associated shortness of breath. States that it also is gone into his neck and his left arm. States that this feels just like when he had a previous CO approximately one year ago. Patient states that he does have a stent placed in his maker and is had an ablation with a defibrillator placed also proximally 1 year ago. Patient states that his pain is a 6 out of 10. Patient reports associated shortness of breath with his chest pain. Patient states that his chest pain has been intermittent. Patient denies taking any nitroglycerin but does state that he took a baby aspirin this morning with his regular meds. At the ED, his vital signs were stable. Labs revealed elevated BNP and a negative troponin. EKG no acute ST-T change. Chest x-ray no acute change. Due to his cardiovascular risk factors, acute ACS was suspected and heparin drip was started, he will be admitted for further evaluation. Past Med Surg Social Fam HX - Past Medical History Medical history: cardiomyopathy, coronary artery disease, GERD, hyperlipidemia, hypertension, myocardial infarction, SVT Psychiatric history: no psych history - Past Surgical History Surgical History: no surgical history - Social History Smoking Status: Former smoker Smokeless Tobacco Status: No Alcohol use: none Drug use: none - Family History Mother Name: jamison medrano Age: 70 Living Status: Still Living Hx Family Cardiac Disorders: Yes (CO at 47yr old) Internal Medicine - H&P: Meds Aspirin 81 mg PO DAILY #30 tab.chew 01/19/17 [Rx] Lisinopril [Zestril] 2.5 mg PO DAILY #30 tablet 01/19/17 [Rx] Rosuvastatin [Crestor] 40 mg PO HS #30 tablet 01/19/17 [Rx] Ticagrelor [Brilinta] 90 mg PO BID #60 tablet 01/19/17 [Rx] Furosemide [Lasix] 20 mg PO DAILY 05/05/17 [History] Metoprolol XL (24 HR) Succ [Toprol Xl] 50 mg PO DAILY 05/05/17 [History] Spironolactone [Aldactone] 25 mg PO BID 05/05/17 [History] 3 Allergy/AdvReac Type Severity Reaction Status Date / Time Penicillins Allergy Unknown Unkown Verified 02/21/18 13:02 All Systems PM: A 10-system review of systems was performed and is negative for pertinent findings except as documented above in the HPI. Review of systems: REVIEW OF SYSTEMS: CONSTITUTIONAL: No weight loss, fever, chills, weakness or fatigue. HEENT: Eyes: No visual loss, blurred vision, double vision or yellow sclerae. Ears, Nose, Throat: No hearing loss, sneezing, congestion, runny nose or sore throat. SKIN: No rash or itching. CARDIOVASCULAR: see HPI. RESPIRATORY: No shortness of breath, cough or sputum. GASTROINTESTINAL: No anorexia, nausea, vomiting or diarrhea. No abdominal pain or blood. GENITOURINARY: No dysuria, urgency, or frequency. NEUROLOGICAL: No headache, dizziness, syncope, paralysis, ataxia, numbness or tingling in the extremities. No change in bowel or bladder control. MUSCULOSKELETAL: No muscle, back pain, joint pain or stiffness. HEMATOLOGIC: No anemia, bleeding or bruising. LYMPHATICS: No enlarged nodes. No history of splenectomy. PSYCHIATRIC: No history of depression or anxiety. ENDOCRINOLOGIC: No reports of sweating, cold or heat intolerance. No polyuria or polydipsia. - Constitutional Vitals: Temp Pulse Resp BP Pulse Ox 97.4 F L 73 16 129/87 97 02/21/18 16:50 02/21/18 16:50 02/21/18 16:50 02/21/18 16:50 02/21/18 16:50 General appearance: Present: A&O X 3 Exam: PHYSICAL EXAMINATION: GENERAL APPEARANCE: The patient is alert, oriented and in no acute distress. HEENT: Head is normocephalic. The sinuses are nontender. Pupils are equal and reactive. The nares are patent. Oropharynx clear without lesions. NECK: Supple without lymphadenopathy. HEART: Regular rate and rhythm. LUNGS: No crackles or wheezes are heard. ABDOMEN: Soft, nontender, nondistended with good bowel sounds heard. Inguinal area is normal. EXTREMITIES: Without cyanosis, clubbing or edema. NEUROLOGICAL: Gross nonfocal. SKIN: Warm and dry without any rash. Internal Med - H&P Results - Labs CBC & Chem 7: 02/21/18 13:20 02/21/18 13:20 - Assessment and plan (1) Chest pain Current Visit: Yes Status: Acute Assessment and plan: 47-year-old male with past medical history of CAD status post stent placement, systolic and diastolic heart failure presented with acute onset of chest pain. Symptoms is consistent with typical chest pain. ACS was suspected. Heparin drip was initiated at ED. - Takes aspirin and Brillinta at home. Stress test was normal 2 months ago. Coronary angiogram in 2017 revealed moderate coronary artery disease patent LAD with stent. - Continue heparin drip, patient already received aspirin at ED, continue home Brilinta. - Continue cycle troponin, EKG as needed. 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 - Euvolemic on physical exam. - Continue home medications including PADMINI inhibitor, beta agustín, Aldactone, and Lasix. Qualifiers: Heart failure chronicity: chronic Qualified Code(s): I50.42 - Chronic combined systolic (congestive) and diastolic (congestive) heart failure (3) Hypertension Current Visit: No Status: Chronic Assessment and plan: - BP well controlled, continue home medications. Qualifiers: Hypertension type: essential hypertension Qualified Code(s): I10 - Essential (primary) hypertension (4) SVT (supraventricular tachycardia) Current Visit: No Status: Chronic Assessment and plan: - Stable, sinus rhythm on telemetry. (5) NSTEMI (non-ST elevated myocardial infarction) Current Visit: No Status: Chronic Assessment and plan: - Continue aspirin, Brilinta, heparin drip. (6) Ischemic cardiomyopathy Current Visit: No Status: Chronic Assessment and plan: - Same as above. (7) AICD (automatic cardioverter/defibrillator) present Current Visit: No Status: Chronic Assessment and plan: - Same as above. (8) History of heart artery stent Current Visit: No Status: Chronic Assessment and plan: - Same as above. - Time Spent With Patient Total time spent is greater than 50% in coordination of care (as documented) at patient's floor/unit and/or counseling patient: Greater than 35 minutes <Jose Becerra - Last Filed: 02/21/18 23:44> Date of Encounter: 02/21/18 Internal Medicine - H&P: HPI History of present illness: Mr. Medrano is a 47 year old male All Systems PM: A 10-system review of systems was performed and is negative for pertinent findings except as documented above in the HPI. - Constitutional Vitals: Temp Pulse Resp BP Pulse Ox 97.6 F 72 14 115/67 95 02/21/18 23:23 02/21/18 23:23 02/21/18 23:23 02/21/18 23:23 02/21/18 23:23 Internal Med - H&P Results - Labs CBC & Chem 7: 02/21/18 13:20 02/21/18 13:20 Labs: Cardiac Enzymes 02/21/18 Range/Units 18:45 Troponin I 0.03 (< 0.04) ng/mL - Attending Attestation I examined this patient and my medical decision-making was reviewed with the Resident Physician. I agree with the documented findings, disposition and treatment plan as described except to the extent set forth below. - Time Spent With Patient Total time spent is greater than 50% in coordination of care (as documented) at patient's floor/unit and/or counseling patient:
[2018-02-21] MEDS: Spironolactone 25 MG TABLET PO SCH (20:58)
[2018-02-21] MEDS: *HR* Ticagrelor 90 MG TABLET PO SCH (20:58)
[2018-02-21] MEDS: *HR* Heparin 5,000 UNIT/ML VIAL IVP PRN (22:44)
[2018-02-22 01:08] LABS: Basophils # 0.1 K/mcL (0.0-0.2); Basophils % 0.5 %; Eosinophils # 0.3 K/mcL (0.0-0.6); Eosinophils % 2.5 %; Hematocrit 43.6 % (37.5-50.1); Hemoglobin 14.4 g/dL (12.9-16.9); Immature Granulocytes % 0.4 % (0-4); Lymphocytes # 3.9 K/mcL (0.6-4.6); Lymphocytes % 37.6 %; Mean Corpuscular Hemoglobin 27.7 pg (28.0-33.3); Mean Platelet Volume 11.5 fL (9.4-12.4); Monocytes # 0.7 K/mcL (0.0-1.3); Monocytes % 6.6 %; Neutrophils # 5.4 K/mcL (1.6-8.9); Platelet Count 255 K/mcL (140-400); Red Blood Count 5.19 M/mcL (4.19-5.50); Red Cell Distribution Width 13.4 % (11.5-14.5); Segmented Neutrophils % 52.4 %
[2018-02-22 01:25] LABS: BUN/Creatinine Ratio 12 (6-26); Blood Urea Nitrogen 15 mg/dL (6-20); Calcium 9.1 mg/dL (8.6-10.3); Carbon Dioxide 29 mEq/L (23-29); Chloride 100 mEq/L (98-107); Glucose 110 mg/dL (70-105); Osmolality,Calculated 287 (280-300); Potassium 3.7 mEq/L (3.5-5.1); Sodium 138 mEq/L (136-145); eGFR For African Americans > 60 (> 60); eGFR For Non-African Americans > 60 (> 60)
[2018-02-22] MEDS: *HR* Heparin 5,000 UNIT/ML VIAL IVP PRN (06:09)
--- NOTE | 2018-02-22 10:34 | Cardiology Consult Note ---
<TheodoreMarifer Helder - Last Filed: 02/22/18 10:51> Date of Encounter: 02/22/18 Time of Encounter: 09:00 Assessment and Plan (1) Chest pain Current Visit: Yes Status: Acute Per cardiology: -Reported shortness of breath and chest discomfort at rest. -Denies exertional symptoms, -Symptoms different from previous angina. -Troponins negative x4. -No acute ischemic ECG changes -Denies current symptoms. -TTE pending. -Further recommendations pending TTE. Qualifiers: Chest pain type: unspecified Qualified Code(s): R07.9 - Chest pain, unspecified (2) CAD (coronary artery disease) Current Visit: Yes Status: Chronic Per cardiology: -Known CAD s/p DE 12/2016 with stenting to LAD> -LHC 01/2017 with patent stent LAD, 30% mid LAD, 30% mid circumflex, 40% distal circumflex, 15% left PDA, 50-60% mid RCA. -On asa, statin, beta agustín, azalea inhibitor, brilinta. Qualifiers: Coronary Disease-Associated Artery/Lesion type: [place] artery [place] vs. transplanted heart: [place] heart Associated angina: angina presence unspecified Qualified Code(s): I25.10 - Atherosclerotic heart disease of [place] coronary artery without angina pectoris (3) Ischemic cardiomyopathy Current Visit: No Status: Chronic Per cardiology: -Known ICM. HAs ICD. -denies ICD shocks. -ON beta agustín, azalea inhibitor, lasix, and aldactone. -Mild bilateral pedal edema. -BNP 300s. -Chest x-ray with no acute process. -Will continue to monitor. (4) History of ventricular tachycardia Current Visit: Yes Status: Acute Per cardiology: -Known history of VT s/p VT ablation at [facility]. -HAs ICD, denies ICD shocks. -Of note, was taking amiodarone 200mg daily in outpatient setting. -Last PFT 09/2017 with obstructive airway disease, diffusion capacity normal. -Will resume amio 200mg daily. Discussion w patient/family: The assessment and plan as outlined above was discussed with the patient and/or family members who expressed understanding and agreement. All questions were answered. Thank you for involving us in the care of your patient. Please call with any questions. Discussed and reviewed with . History of Present Illness Consult date: 02/21/18 Requesting physician: Josué Bowles Consult reason: chest pain Chief complaint: shortness of breath History of present illness: Mr. Medrano is a 47 year old male with a relevant past medical history of CAD s/p PCI, DE, ischemic cardiomyopathy s/p ICD placement, Ventricular tachycardia s/p ablation, HTN, depression. Patient presented to [facility] with complaints of shortness of breath and chest discomfort. Patient states symptoms started while sitting, driving. Denies aggravating or alleviating factors. States symptoms resolved spontaneously. Reports these symptoms different from previous angina. States previous angina wad vomiting. Denies current chest pain or shortness of breath. Denies exertional chest pain. Patient reports some mild pedal edema, about baseline. OF note, patient reports he has gained about 100 pounds since last year. Denies ICD shocks. Past Med Surg Social Fam HX - Past Medical History Attestation: Yes The following information was validated with the patient. Source: patient, old records reviewed Medical history: cardiomyopathy, coronary artery disease, GERD, hyperlipidemia, hypertension, myocardial infarction, SVT Psychiatric history: no psych history - Past Surgical History Surgical History: no surgical history - Social History Smoking Status: Former smoker Smokeless Tobacco Status: No Alcohol use: none Drug use: none - Family History Mother Name: jamison medrano Age: 70 Living Status: Still Living Hx Family Cardiac Disorders: Yes (DE at 47yr old) Medications and Allergies Aspirin 81 mg PO DAILY #30 tab.chew 01/19/17 [Rx] Lisinopril [Zestril] 2.5 mg PO DAILY #30 tablet 01/19/17 [Rx] Rosuvastatin [Crestor] 40 mg PO HS #30 tablet 01/19/17 [Rx] Ticagrelor [Brilinta] 90 mg PO BID #60 tablet 01/19/17 [Rx] Furosemide [Lasix] 20 mg PO DAILY 05/05/17 [History] Metoprolol XL (24 HR) Succ [Toprol Xl] 50 mg PO DAILY 05/05/17 [History] Spironolactone [Aldactone] 25 mg PO BID 05/05/17 [History] 3 Allergy/AdvReac Type Severity Reaction Status Date / Time Penicillins Allergy Unknown Unkown Verified 02/21/18 13:02 All Systems Review: The remainder of the systems were reviewed and are negative - Cardiovascular Cardiovascular: as per HPI, chest pain at rest, dyspnea at rest Physical Examination Vital Signs Temperature 98.2 F 02/21/18 13:01 Pulse Rate 86 02/21/18 13:01 Respiratory Rate 22 02/21/18 13:01 Blood Pressure 154/92 02/21/18 13:01 O2 Sat by Pulse Oximetry 97 02/21/18 13:01 Temperature 97.5 F L 02/22/18 03:36 Pulse Rate 78 02/22/18 03:36 Respiratory Rate 17 02/22/18 03:36 Blood Pressure 103/61 02/22/18 03:36 O2 Sat by Pulse Oximetry 95 02/22/18 03:36 Oxygen Delivery Oxygen Delivery Room Air General: Conversant, No Apparent Distress HEENT: Atraumatic, Normocephaly, Mucus Membranes Moist Neck: No JVD, Normal carotid pulses Cardiac: Reg Rate and Rhythm, Normal S1 and S2, No Murmur Lungs: Normal Breath Sounds, No Wheeze, Rales, Rhonchi Neuro: Alert and responsive, No focal deficits noted Abdomen: Soft, Non-Tender Skin: No rashes noted on visualized skin Musculoskeletal: No Chest Wall Tenderness Extremities: No Clubbing, No Cyanosis, Normal Pulses, Other (Bilateral mild edema noted. ) Results 02/22/18 00:35 02/22/18 00:35 Lab Results Impressions Chest X-Ray 02/21/18 13:10 IMPRESSION: No acute airspace disease identified. Status post left subclavian ICD placement. D/ / Italo Winters / Italo Winters Interpreting Provider: Italo Winters Active Medications Acetaminophen (Tylenol) 650 mg PO Q6HR PRN PRN Reason: Mild Pain/Fever Stop: 08/23/18 18:08 Aspirin (Aspirin) 81 mg PO DAILY [facility] Stop: 08/24/18 09:01 Furosemide (Lasix) 20 mg PO DAILY [facility] Stop: 08/24/18 09:01 Heparin Sodium (Porcine) (Heparin) 4,000 unit IVP Q6HR PRN PRN Reason: SEE COMMENTS Stop: 08/23/18 15:10 Last Admin: 02/22/18 06:09 Dose: 4,000 unit Heparin Sodium (Porcine) (Heparin) 2,000 unit IVP Q6H PRN PRN Reason: SEE COMMENTS Stop: 08/23/18 15:10 Heparin Sodium/Dextrose (Heparin 25,000 Unit/500 Ml D5w) 25,000 unit in 500 mls @ 19.712 mls/hr IVC .Q24H [facility]; 6.1 UNIT/KG/HR PRN Reason: Protocol Stop: 08/23/18 15:16 Last Titration: 02/22/18 06:03 Dose: 13.18 unit/kg/hr, 42.6 mls/hr Lisinopril (Zestril) 2.5 mg PO DAILY [facility] PRN Reason: Protocol Stop: 08/24/18 09:01 Metoprolol Succinate (Toprol Xl) 50 mg PO DAILY [facility] Stop: 08/24/18 09:01 Naloxone HCl (Narcan) 0.4 mg IVP Q2MIN PRN PRN Reason: SEE COMMENTS Stop: 08/23/18 18:08 Nitroglycerin (Nitroglycerin) 0.4 mg SL Q5MIN PRN PRN Reason: Chest Pain Stop: 08/23/18 13:33 Last Admin: 02/21/18 14:27 Dose: 0.4 mg Rosuvastatin Calcium (Crestor) 40 mg PO HS [facility] Stop: 08/23/18 21:01 Last Admin: 02/21/18 20:58 Dose: 40 mg Spironolactone (Aldactone) 25 mg PO BID [facility] Stop: 08/23/18 21:01 Last Admin: 02/21/18 20:58 Dose: 25 mg Ticagrelor (Brilinta) 90 mg PO BID [facility] Stop: 08/23/18 21:01 Last Admin: 02/21/18 20:58 Dose: 90 mg Tramadol HCl (Ultram) 50 mg PO Q6HR PRN PRN Reason: Moderate Pain Stop: 08/23/18 18:08 Laboratory Tests 02/21/18 02/21/18 02/21/18 13:20 13:20 18:45 Hgb Creatinine Troponin I 0.03 0.03 B-Natriuretic Peptide 302 H 02/22/18 02/22/18 02/22/18 00:35 00:35 00:35 Hgb 14.4 Creatinine 1.29 Troponin I < 0.03 B-Natriuretic Peptide 02/22/18 05:32 Hgb Creatinine Troponin I < 0.03 B-Natriuretic Peptide - Imaging and Cardiology Chest Xray: report reviewed Stress Test: report reviewed Echo: report reviewed Cardiac cath: report reviewed - EKG Interpretation EKG results cardiology: personally reviewed (ECG with SR, HR 83.), other ( Telemetry reviewed with average HR previous 12 hours noted to be 66, SR. PVCS and PACS noted.) Consult Discharge Plan - Plan Referrals: Ellis Meek DO [Primary Care Provider] - Socrates Holbrook MD [Partnered Physician] - 03/01/18 10:00 am <Scott Harris - Last Filed: 02/23/18 12:24> Date of Encounter: 02/21/18 Time of Encounter: 21:15 - Attending Attestation I have personally performed a face to face evaluation on this patient. I have reviewed and agree with the care plan. History and Exam by me shows: CC: shortness of breath Pt complains of shortness of breath while driving, no additional stress, felt he started having difficulty taking a deep breath, accompained by chest tigthtness, not his typical chest pain, no heart pounding or palpitations, lasted four to five minutes and resolved spontaneously. He has not had a reoccurrence. PT reports symptoms were different than previous anginal pain, GERD discomfort, or episodes of SVT. PMHx: Reviewed PE: pt examined, agree with documented findings IMP/plan 1. Chest pain - atypical, has ruled out for myocardial necrosis so far, continue to trend cardiac enzemes. 2. Severe ischemic cardiomyopathy with indwelling AICD - did not fire, will interogate for possible arhythmogenic etiology of symptoms, echocardiogram to reassess LV function. 3. Well compensated chronic systolic heart failure 4. CAD - severe three vessel dx, previous PCI with CARMELO LAD Assessment and Plan Discussion w patient/family: The assessment and plan as outlined above was discussed with the patient and/or family members who expressed understanding and agreement. All questions were answered. Thank you for involving us in the care of your patient. Please call with any questions. History of Present Illness History of present illness: Mr. Medrano is a 47 year old male All Systems Review: The remainder of the systems were reviewed and are negative Physical Examination Vital Signs, Last 4 Hours Temp Pulse Resp BP 02/23/18 10:56 97.9 F 69 16 108/65 Results 02/23/18 01:53 02/23/18 01:53 Lab Results 02/22/18 02/22/18 02/23/18 11:57 18:02 01:53 WBC 11.9 H Hgb 15.3 Hct 46.0 Plt Count 246 APTT 67.2 H D 55.7 H Sodium Potassium Chloride Carbon Dioxide BUN Creatinine Glucose Calcium 02/23/18 02/23/18 02/23/18 01:53 01:53 07:57 WBC Hgb Hct Plt Count APTT 61.9 H 55.3 H Sodium 138 Potassium 3.8 Chloride 104 Carbon Dioxide 24 BUN 12 Creatinine 1.13 Glucose 108 H Calcium 9.3
[2018-02-22] MEDS: Spironolactone 25 MG TABLET PO SCH ×2 (10:48→20:40)
[2018-02-22] MEDS: *HR* Ticagrelor 90 MG TABLET PO SCH ×2 (10:48→20:40)
[2018-02-22] MEDS: Metoprolol XL (24 HR) Succ 25 MG TAB.ER.24H PO SCH (10:48)
[2018-02-22] MEDS: Aspirin 81 MG TAB.CHEW PO SCH (10:48)
[2018-02-22] MEDS: Furosemide 20 MG TABLET PO SCH (10:49)
[2018-02-22] MEDS: *HR* Amiodarone 200 MG TABLET PO SCH (13:16)
[2018-02-22] MEDS: Heparin 25,000 UNIT/500 ML D5W 25,000 UNIT/500 ML BAG IVC SCH (13:17)
--- NOTE | 2018-02-22 15:44 | Internal Med Progress Note ---
Date of Encounter: 02/22/18 Time of Encounter: 09:00 - Assessment and plan (1) Hypertension Current Visit: No Status: Chronic Assessment and plan: -Chronic. Well controlled, continue home medications. Qualifiers: Hypertension type: essential hypertension Qualified Code(s): I10 - Essential (primary) hypertension (2) SVT (supraventricular tachycardia) Current Visit: No Status: Chronic Assessment and plan: Stable. Rate controlled. Continue telemetry and monitor pt. (3) NSTEMI (non-ST elevated myocardial infarction) Current Visit: Yes Status: Chronic Assessment and plan: Continue aspirin, Brilinta, heparin drip. Pt currently denies chest pain, reports intermittent SOB. Continue telemetry Cardiology following. (4) Ischemic cardiomyopathy Current Visit: No Status: Chronic Assessment and plan: Last echocardiogram 01/18/17 with an LVEF of 30-35%, mildly dilated left ventricle, severe segmental left ventricular systolic dysfunction.. Patient has a pacemaker, ablation, stent placement 1 year ago at [facility]. Patient denies the defibrillator has fired. Continue beta agustín, ACEI, Lasix, Aldactone. Patient has mildly elevated BNP, suspect chronic elevation. Echocardiogram is pending. Cardiology following. (5) Chest pain Current Visit: Yes Status: Acute Assessment and plan: Patient currently denies chest pain. He is 1 year status post stent placement, ICD/pacemaker placement, ablation at [facility]. Patient with ischemic cardiomyopathy and history of CHF. Due to patient's past history, heparin drip was started in the emergency department. Patient takes aspirin, statin, beta agustín, ACEI and Brilinta at home. Troponins were negative. Chest x-ray negative. EKG without any ST changes. Cardiology is following, per their note: Stress test was normal 2 months ago, coronary angiogram in 2017 showed moderate CAD with a patent LAD stent. Patient received aspirin in the emergency department, continue the Proventil and heparin drip. TTE pending Continue telemetry Pain control Qualifiers: Chest pain type: unspecified Qualified Code(s): R07.9 - Chest pain, unspecified (6) AICD (automatic cardioverter/defibrillator) present Current Visit: No Status: Inactive Assessment and plan: Chronic. Patient denies firing. (7) History of heart artery stent Current Visit: No Status: Inactive Assessment and plan: Status post stent placement 1 year ago at [facility]. Continue home medications. (8) Combined systolic and diastolic congestive heart failure Current Visit: No Status: Chronic Assessment and plan: Mild acute exacerbation. Last TTE in 2017 revealed EF 30-35%, severe LVDD, no significant valvular dysfunction. BNP mildly elevated at 302. Euvolemic on physical exam. Continue home medications including PADMINI inhibitor, beta agustín, Aldactone, and Lasix. Continue daily weights, I and O Qualifiers: Heart failure chronicity: chronic Qualified Code(s): I50.42 - Chronic combined systolic (congestive) and diastolic (congestive) heart failure - Time Spent With Patient Total time spent is greater than 50% in coordination of care (as documented) at patient's floor/unit and/or counseling patient: 25 - 35 minutes - Subjective Interval history: Pt was seen at bedside at 0900. Parents at bedside. Pt denied chest pain this a.m. He states that he still at times feels like he can't "catch my breath", but states that it is infrequent and only lasts a second or so. He denies MCGRATH, n/ v, diaphoresis, radiation of pain, diarrhea, abdominal pain, or peripheral edema. He and I discussed lifestyle modifications, he was agreeable, though I feel like he will need a lot of education and encouragement. All questions were answered, time spent with pt and family approximately 10 minutes. - Constitutional Vitals: Temp Pulse Resp BP Pulse Ox 97.5 F L 65 14 107/68 97 02/22/18 11:18 02/22/18 11:18 02/22/18 11:18 02/22/18 11:18 02/22/18 11:18 General appearance: Present: cooperative, A&O X 3, morbidly obese, pleasant, no acute distress, answers questions appropriately - Head Head exam: Present: atraumatic, normal inspection, normocephalic - Eye Eye exam: Present: normal appearance, conjuntiva pink, sclera anicteric - Neck Neck exam general surgery: Present: supple, trachea midline. Absent: lymphadenopathy, tenderness - Respiratory Respiratory exam: Present: CTAB. Absent: accessory muscle use, chest wall tenderness, rales, rhonchi, wheezes - Cardiovascular Cardiovascular exam: Present: RRR, +S1, +S2. Absent: diastolic murmur, gallop, rubs, systolic murmur - GI/Abdominal GI/Abdominal exam: Present: normal bowel sounds, soft. Absent: distended, hepatomegaly, tenderness - Extremities Exam Extremities exam: Present: normal inspection, warm, radial pulses palpable and symmetrical. Absent: calf tenderness, cyanotic, pedal edema, tenderness - Neurological Exam Neurological exam: Present: CN II-XII intact, oriented X3, no focal deficits. Absent: facial droop, speech deficit - Skin Skin exam: Present: dry, intact, normal color, warm. Absent: rash Internal Medicine: Result - Labs CBC & Chem 7: 02/22/18 00:35 02/22/18 00:35 Labs: Short CBC 02/22/18 Range/Units 00:35 WBC 10.3 (4.3-11.1) K/mcL Hgb 14.4 (12.9-16.9) g/dL Hct 43.6 (37.5-50.1) % Plt Count 255 (140-400) K/mcL Neutrophils # 5.4 (1.6-8.9) K/mcL BMP 02/22/18 00:35 Sodium 138 Potassium 3.7 Chloride 100 Carbon Dioxide 29 BUN 15 Creatinine 1.29 Glucose 110 H Calcium 9.1 Cardiac Enzymes 02/21/18 02/22/18 02/22/18 Range/Units 18:45 00:35 05:32 Troponin I 0.03 < 0.03 < 0.03 (< 0.04) ng/mL - ABG Interpretation ABG results: PT/INR, D-dimer PT 11.2 Seconds (9.4-12.1) 02/21/18 13:20 Consult Discharge Plan - Plan Referrals: Ellis Meek DO [Primary Care Provider] - Socrates Holbrook MD [Partnered Physician] - 03/01/18 10:00 am
[2018-02-23] MEDS: Heparin 25,000 UNIT/500 ML D5W 25,000 UNIT/500 ML BAG IVC SCH (00:15)
[2018-02-23 02:14] LABS: Basophils # 0.1 K/mcL (0.0-0.2); Basophils % 0.5 %; Eosinophils # 0.3 K/mcL (0.0-0.6); Eosinophils % 2.4 %; Hemoglobin 15.3 g/dL (12.9-16.9); Immature Granulocytes % 0.3 % (0-4); Lymphocytes # 4.5 K/mcL (0.6-4.6); Lymphocytes % 37.9 %; Mean Corpuscular HGB Conc 33.3 g/dL (31.6-35.5); Mean Corpuscular Hemoglobin 27.8 pg (28.0-33.3); Mean Corpuscular Volume 83.6 fL (83.0-100.0); Mean Platelet Volume 11.7 fL (9.4-12.4); Monocytes # 0.9 K/mcL (0.0-1.3); Monocytes % 7.3 %; Neutrophils # 6.1 K/mcL (1.6-8.9); Platelet Count 246 K/mcL (140-400); Red Cell Distribution Width 13.5 % (11.5-14.5); Segmented Neutrophils % 51.6 %
[2018-02-23 02:33] LABS: BUN/Creatinine Ratio 11 (6-26); Blood Urea Nitrogen 12 mg/dL (6-20); Calcium 9.3 mg/dL (8.6-10.3); Carbon Dioxide 24 mEq/L (23-29); Chloride 104 mEq/L (98-107); Glucose 108 mg/dL (70-105); Osmolality,Calculated 286 (280-300); Potassium 3.8 mEq/L (3.5-5.1); Sodium 138 mEq/L (136-145); eGFR For African Americans > 60 (> 60); eGFR For Non-African Americans > 60 (> 60)
[2018-02-23] MEDS: Spironolactone 25 MG TABLET PO SCH ×2 (08:58→20:12)
[2018-02-23] MEDS: Furosemide 20 MG TABLET PO SCH (08:58)
[2018-02-23] MEDS: *HR* Amiodarone 200 MG TABLET PO SCH (08:58)
[2018-02-23] MEDS: Metoprolol XL (24 HR) Succ 25 MG TAB.ER.24H PO SCH (08:58)
[2018-02-23] MEDS: Aspirin 81 MG TAB.CHEW PO SCH (08:58)
[2018-02-23] MEDS: *HR* Ticagrelor 90 MG TABLET PO SCH ×2 (08:58→20:13)
[2018-02-23] MEDS ORDERED: Perflutren Lipid Microsphere 1.3 ML in 0.9 % Sodium Chloride 8.7 ML IVP ONE (10:48)
--- NOTE | 2018-02-23 13:44 | Cardiology Progress Note ---
Date of Encounter: 02/23/18 Time of Encounter: 13:00 Assessment and Plan (1) Chest pain Current Visit: Yes Status: Acute Per cardiology: -Reported shortness of breath and chest discomfort at rest. -Denies exertional symptoms. Reports mild shortness of breath today, denies chest discomfort. -Symptoms different from previous angina. -Troponins negative x4. -No acute ischemic ECG changes -Denies current symptoms. -TTE with LVEF 30%, no significant change from previous. -Suspect shortness of breath multifactoral. -Anticipate sign off if no significant events on device check. Has follow up with [facility]. Qualifiers: Chest pain type: unspecified Qualified Code(s): R07.9 - Chest pain, unspecified (2) CAD (coronary artery disease) Current Visit: Yes Status: Chronic Per cardiology: -Known CAD s/p CA 12/2016 with stenting to LAD> -LHC 01/2017 with patent stent LAD, 30% mid LAD, 30% mid circumflex, 40% distal circumflex, 15% left PDA, 50-60% mid RCA. -On asa, statin, beta agustín, azalea inhibitor, brilinta. Qualifiers: Coronary Disease-Associated Artery/Lesion type: [place] artery [place] vs. transplanted heart: [place] heart Associated angina: angina presence unspecified Qualified Code(s): I25.10 - Atherosclerotic heart disease of [place] coronary artery without angina pectoris (3) Ischemic cardiomyopathy Current Visit: No Status: Chronic Per cardiology: -Known ICM. HAs ICD. -denies ICD shocks. -ON beta agustín, azalea inhibitor, lasix, and aldactone. -Mild bilateral pedal edema. -BNP 300s. -Chest x-ray with no acute process. -Will continue to monitor in outpatient setting. (4) History of ventricular tachycardia Current Visit: Yes Status: Acute Per cardiology: -Known history of VT s/p VT ablation at [facility]. -HAs ICD, denies ICD shocks. -Of note, was taking amiodarone 200mg daily in outpatient setting. -Last PFT 09/2017 with obstructive airway disease, diffusion capacity normal. -On amiodarone 200mg daily. -Has biotronik ICD, will have Renita [employer] device rep interrogate device. Anticipate cardiology sign off if device check without significant events. Discussion w patient/family: The assessment and plan as outlined above was discussed with the patient and/or family members who expressed understanding and agreement. All questions were answered. Thank you for involving us in the care of your patient. Please call with any questions. Discussed and reviewed with Dr.John Grimaldo. Subjective Principal diagnosis: Shortness of breath Interval history: Reports mild shortness of breath today. Denies chest pain. Objective Vital Signs, Last 4 Hours Temp Pulse Resp BP 02/23/18 10:56 97.9 F 69 16 108/65 General: Conversant, No Apparent Distress HEENT: Atraumatic, Normocephaly, Mucus Membranes Moist Neck: No JVD, Normal carotid pulses Cardiac: Reg Rate and Rhythm, Normal S1 and S2, No Murmur Lungs: Normal Breath Sounds, No Wheeze, Rales, Rhonchi Neuro: Alert and responsive, No focal deficits noted Abdomen: Soft, Non-Tender Skin: No rashes noted on visualized skin Musculoskeletal: No Chest Wall Tenderness Extremities: No Clubbing, No Cyanosis, No Edema, Normal Pulses Results 02/23/18 01:53 02/23/18 01:53 Lab Results Impressions Echocardiogram 02/23/18 07:33 Impressions: LVEF 30%. Moderately dilated left ventricle. Segmental left ventricular systolic dysfunction. Moderate left ventricular diastolic dysfunction. Right ventricle not well visualized. Function is grossly normal. A device lead was visualized in the right atrium and right ventricle. No evidence of pulmonary hypertension. RVSP not well obtained due to poor TR jet. Left Ventricular Wall Motion: Rest Echo Findings The apex, apical inferior, apical anterior, mid anterior, apical septal, mid inferior septal, apical lateral and mid anterior septal maldonado were hypokinetic. All other wall segments showed normal motion. Findings: Study Quality * Technically sub-optimal due to body habitus. ECG Findings * Normal sinus rhythm. Left Ventricle * LVEF 30%. * Moderately dilated left ventricle. * Segmental left ventricular systolic dysfunction. * Moderate left ventricular diastolic dysfunction. Right Ventricle * Right ventricle not well visualized. Function is grossly normal. Left Atrium * Moderately dilated left atrium. Right Atrium * Right atrium is not well visualized. Aortic Valve * Aortic valve not well visualized. * No aortic stenosis. * No aortic regurgitation. Mitral Valve * Mitral valve not well visualized. * No mitral regurgitation. * No mitral stenosis. Tricuspid Valve * Normal tricuspid valve structure and function. * Trace tricuspid regurgitation. * No evidence of pulmonary hypertension. Pulmonic Valve * Pulmonic valve not well visualized. * No pulmonic regurgitation. Aorta * Normally sized aortic root. Pericardium * There is a trivial pericardial effusion present. IVC * The IVC is not well evaluated. Device lead * A device lead was visualized in the right atrium and right ventricle. Pulmonary Artery * Pulmonary artery not well visualized. Active Medications Acetaminophen (Tylenol) 650 mg PO Q6HR PRN PRN Reason: Mild Pain/Fever Stop: 08/23/18 18:08 Amiodarone HCl (Cordarone) 200 mg PO DAILY [facility] Stop: 08/24/18 11:01 Last Admin: 02/23/18 08:58 Dose: 200 mg Aspirin (Aspirin) 81 mg PO DAILY [facility] Stop: 08/24/18 09:01 Last Admin: 02/23/18 08:58 Dose: 81 mg Furosemide (Lasix) 20 mg PO DAILY [facility] Stop: 08/24/18 09:01 Last Admin: 02/23/18 08:58 Dose: 20 mg Heparin Sodium (Porcine) (Heparin) 4,000 unit IVP Q6HR PRN PRN Reason: SEE COMMENTS Stop: 08/23/18 15:10 Last Admin: 02/22/18 06:09 Dose: 4,000 unit Heparin Sodium (Porcine) (Heparin) 2,000 unit IVP Q6H PRN PRN Reason: SEE COMMENTS Stop: 08/23/18 15:10 Last Admin: 02/22/18 20:00 Dose: 2,000 unit Lisinopril (Zestril) 2.5 mg PO DAILY [facility] PRN Reason: Protocol Stop: 08/24/18 09:01 Last Admin: 02/23/18 08:58 Dose: 2.5 mg Metoprolol Succinate (Toprol Xl) 50 mg PO DAILY [facility] Stop: 08/24/18 09:01 Last Admin: 02/23/18 08:58 Dose: 50 mg Naloxone HCl (Narcan) 0.4 mg IVP Q2MIN PRN PRN Reason: SEE COMMENTS Stop: 08/23/18 18:08 Nitroglycerin (Nitroglycerin) 0.4 mg SL Q5MIN PRN PRN Reason: Chest Pain Stop: 08/23/18 13:33 Last Admin: 02/21/18 14:27 Dose: 0.4 mg Rosuvastatin Calcium (Crestor) 40 mg PO HS [facility] Stop: 08/23/18 21:01 Last Admin: 02/22/18 20:40 Dose: 40 mg Spironolactone (Aldactone) 25 mg PO BID [facility] Stop: 08/23/18 21:01 Last Admin: 02/23/18 08:58 Dose: 25 mg Ticagrelor (Brilinta) 90 mg PO BID [facility] Stop: 08/23/18 21:01 Last Admin: 02/23/18 08:58 Dose: 90 mg Tramadol HCl (Ultram) 50 mg PO Q6HR PRN PRN Reason: Moderate Pain Stop: 08/23/18 18:08 Laboratory Tests 02/21/18 02/21/18 02/22/18 13:20 18:45 00:35 WBC Hgb Creatinine Troponin I 0.03 0.03 < 0.03 02/22/18 02/23/18 02/23/18 05:32 01:53 01:53 WBC 11.9 H Hgb 15.3 Creatinine 1.13 Troponin I < 0.03 - Imaging and Cardiology Chest Xray: report reviewed Echo: report reviewed Cardiac cath: report reviewed - EKG Interpretation EKG results cardiology: other (Telemetry reviewed with average HR previous 12 hours noted to be 64, SR. PVCs and PACs noted.) Consult Discharge Plan - Plan Referrals: Ellis Meek DO [Primary Care Provider] - Socrates Holbrook MD [Partnered Physician] - 03/01/18 10:00 am
--- NOTE | 2018-02-23 16:20 | Internal Med Progress Note ---
Date of Encounter: 02/23/18 Time of Encounter: 09:15 - Assessment and plan (1) Hypertension Current Visit: Yes Status: Chronic Assessment and plan: Chronic. Well controlled, continue home medications. Monitor per admission orders. Qualifiers: Hypertension type: essential hypertension Qualified Code(s): I10 - Essential (primary) hypertension (2) SVT (supraventricular tachycardia) Current Visit: Yes Status: Chronic Assessment and plan: Stable. Rate controlled. Continue telemetry and monitor pt. Continue Amiodarone and Toprol XL (3) NSTEMI (non-ST elevated myocardial infarction) Current Visit: Yes Status: Resolved Assessment and plan: Continue aspirin, Brilinta. Pt currently denies chest pain, reports intermittent SOB. Pt without troponin elevation. Cardiology following. Heparin gtt stopped this a.m (4) Ischemic cardiomyopathy Current Visit: No Status: Chronic Assessment and plan: Last echocardiogram 01/18/17 with an LVEF of 30-35%, mildly dilated left ventricle, severe segmental left ventricular systolic dysfunction.. Continue beta agustín, ACEI, Lasix, Aldactone. Patient has mildly elevated BNP, suspect chronic elevation. Echocardiogram today showed LVEF 30%, moderately dilated LV, moderate LV DD. SEgmental LV systolic dysfunction. Cardiology following. (5) Chest pain Current Visit: Yes Status: Acute Assessment and plan: Patient currently denies chest pain. Patient with ischemic cardiomyopathy and history of CHF. Continue aspirin, statin, beta agustín, ACEI and Brilinta at home. Troponins were negative. Chest x-ray negative. EKG without any ST changes. Cardiology is following, per their note: Stress test was normal 2 months ago, coronary angiogram in 2017 showed moderate CAD with a patent LAD stent. Echo as above Continue telemetry Pain control Chest X-Ray 02/21/18 13:10 IMPRESSION: No acute airspace disease identified. Status post left subclavian ICD placement. D/ / Italo Winters / Italo Winters Interpreting Provider: Italo Winters Echocardiogram 02/23/18 07:33 Impressions: LVEF 30%. Moderately dilated left ventricle. Segmental left ventricular systolic dysfunction. Moderate left ventricular diastolic dysfunction. Right ventricle not well visualized. Function is grossly normal. A device lead was visualized in the right atrium and right ventricle. No evidence of pulmonary hypertension. RVSP not well obtained due to poor TR jet. Left Ventricular Wall Motion: Rest Echo Findings The apex, apical inferior, apical anterior, mid anterior, apical septal, mid inferior septal, apical lateral and mid anterior septal maldonado were hypokinetic. All other wall segments showed normal motion. Findings: Study Quality * Technically sub-optimal due to body habitus. ECG Findings * Normal sinus rhythm. Left Ventricle * LVEF 30%. * Moderately dilated left ventricle. * Segmental left ventricular systolic dysfunction. * Moderate left ventricular diastolic dysfunction. Right Ventricle * Right ventricle not well visualized. Function is grossly normal. Left Atrium * Moderately dilated left atrium. Right Atrium * Right atrium is not well visualized. Aortic Valve * Aortic valve not well visualized. * No aortic stenosis. * No aortic regurgitation. Mitral Valve * Mitral valve not well visualized. * No mitral regurgitation. * No mitral stenosis. Tricuspid Valve * Normal tricuspid valve structure and function. * Trace tricuspid regurgitation. * No evidence of pulmonary hypertension. Pulmonic Valve * Pulmonic valve not well visualized. * No pulmonic regurgitation. Aorta * Normally sized aortic root. Pericardium * There is a trivial pericardial effusion present. IVC * The IVC is not well evaluated. Device lead * A device lead was visualized in the right atrium and right ventricle. Pulmonary Artery * Pulmonary artery not well visualized. Qualifiers: Chest pain type: unspecified Qualified Code(s): R07.9 - Chest pain, unspecified (6) AICD (automatic cardioverter/defibrillator) present Current Visit: No Status: Inactive Assessment and plan: Chronic. 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 Echo today with EF 30%, moderatle dilated LV, segmental LV systolic dysfumction , moderate LV DD, unchanged from prior. BNP mildly elevated at 302. Euvolemic on physical exam, suspect chronic elevation due to poor EF.. Continue home medications including PADMINI inhibitor, beta agustín, Aldactone, Brilinta, and Lasix. Continue daily weights, I and O Qualifiers: Heart failure chronicity: chronic Qualified Code(s): I50.42 - Chronic combined systolic (congestive) and diastolic (congestive) heart failure - Time Spent With Patient Total time spent is greater than 50% in coordination of care (as documented) at patient's floor/unit and/or counseling patient: less than 15 minutes - Subjective Interval history: Pt was seen at bedside at 0915. Parents at bedside. Pt denied chest pain again this a.m denies SOB. He denies MCGRATH, n/v, diaphoresis, radiation of pain, diarrhea , abdominal pain, or peripheral edema. - Constitutional Vitals: Temp Pulse Resp BP Pulse Ox 97.8 F 64 16 96/62 95 02/23/18 14:28 02/23/18 14:28 02/23/18 14:28 02/23/18 14:28 02/23/18 14:28 General appearance: Present: cooperative, A&O X 3, morbidly obese, pleasant, no acute distress, answers questions appropriately - Head Head exam: Present: atraumatic, normal inspection, normocephalic - Eye Eye exam: Present: normal appearance, conjuntiva pink, sclera anicteric - Neck Neck exam general surgery: Present: supple, trachea midline. Absent: lymphadenopathy, tenderness - Respiratory Respiratory exam: Present: CTAB. Absent: accessory muscle use, chest wall tenderness, rales, rhonchi, wheezes - Cardiovascular Cardiovascular exam: Present: RRR, +S1, +S2. Absent: diastolic murmur, gallop, rubs, systolic murmur - GI/Abdominal GI/Abdominal exam: Present: normal bowel sounds, soft, no peritoneal signs. Absent: distended, tenderness - Extremities Exam Extremities exam: Present: normal capillary refill, normal inspection, warm, radial pulses palpable and symmetrical. Absent: calf tenderness, cyanotic, pedal edema, tenderness - Neurological Exam Neurological exam: Present: alert, oriented X3, no focal deficits. Absent: facial droop, speech deficit - Skin Skin exam: Present: dry, intact, warm. Absent: rash Internal Medicine: Result - Labs CBC & Chem 7: 02/23/18 01:53 02/23/18 01:53 Labs: Short CBC 02/23/18 Range/Units 01:53 WBC 11.9 H (4.3-11.1) K/mcL Hgb 15.3 (12.9-16.9) g/dL Hct 46.0 (37.5-50.1) % Plt Count 246 (140-400) K/mcL Neutrophils # 6.1 (1.6-8.9) K/mcL BMP 02/23/18 01:53 Sodium 138 Potassium 3.8 Chloride 104 Carbon Dioxide 24 BUN 12 Creatinine 1.13 Glucose 108 H Calcium 9.3 - ABG Interpretation ABG results: PT/INR, D-dimer PT 11.2 Seconds (9.4-12.1) 02/21/18 13:20 - Impressions Impressions Echocardiogram 02/23/18 07:33 Impressions: LVEF 30%. Moderately dilated left ventricle. Segmental left ventricular systolic dysfunction. Moderate left ventricular diastolic dysfunction. Right ventricle not well visualized. Function is grossly normal. A device lead was visualized in the right atrium and right ventricle. No evidence of pulmonary hypertension. RVSP not well obtained due to poor TR jet. Left Ventricular Wall Motion: Rest Echo Findings The apex, apical inferior, apical anterior, mid anterior, apical septal, mid inferior septal, apical lateral and mid anterior septal maldonado were hypokinetic. All other wall segments showed normal motion. Findings: Study Quality * Technically sub-optimal due to body habitus. ECG Findings * Normal sinus rhythm. Left Ventricle * LVEF 30%. * Moderately dilated left ventricle. * Segmental left ventricular systolic dysfunction. * Moderate left ventricular diastolic dysfunction. Right Ventricle * Right ventricle not well visualized. Function is grossly normal. Left Atrium * Moderately dilated left atrium. Right Atrium * Right atrium is not well visualized. Aortic Valve * Aortic valve not well visualized. * No aortic stenosis. * No aortic regurgitation. Mitral Valve * Mitral valve not well visualized. * No mitral regurgitation. * No mitral stenosis. Tricuspid Valve * Normal tricuspid valve structure and function. * Trace tricuspid regurgitation. * No evidence of pulmonary hypertension. Pulmonic Valve * Pulmonic valve not well visualized. * No pulmonic regurgitation. Aorta * Normally sized aortic root. Pericardium * There is a trivial pericardial effusion present. IVC * The IVC is not well evaluated. Device lead * A device lead was visualized in the right atrium and right ventricle. Pulmonary Artery * Pulmonary artery not well visualized. Consult Discharge Plan - Plan Referrals: Ellis Meek DO [Primary Care Provider] - Socrates Holbrook MD [Partnered Physician] - 03/01/18 10:00 am
[2018-02-23 17:09] LABS: Bilirubin,Urine Negative (Negative); Blood,Urine Negative (Negative); Clarity,Urine Clear (Clear); Color,Urine Yellow (Yellow); Glucose,Urine (UA) Normal (Normal); Ketones,Urine Negative (Negative); Leukocyte Esterase,Urine Negative (Negative); Nitrite,Urine Negative (Negative); PH,Urine 6.5 pH Units (5.0-8.0); Protein,Urine Negative (Neg-Trace); Specific Gravity,Urine 1.013 (1.010-1.025); Urobilinogen,Urine Normal (Normal)
[2018-02-24 03:50] VITALS: BP 103/67
[2018-02-24 05:21] LABS: Basophils % 0.4 %; Eosinophils # 0.2 K/mcL (0.0-0.6); Eosinophils % 1.7 %; Immature Granulocytes % 0.3 % (0-4); Lymphocytes # 3.2 K/mcL (0.6-4.6); Lymphocytes % 30.5 %; Mean Corpuscular HGB Conc 32.6 g/dL (31.6-35.5); Mean Corpuscular Hemoglobin 27.7 pg (28.0-33.3); Mean Corpuscular Volume 84.9 fL (83.0-100.0); Mean Platelet Volume 11.7 fL (9.4-12.4); Monocytes # 0.9 K/mcL (0.0-1.3); Monocytes % 8.3 %; Neutrophils # 6.2 K/mcL (1.6-8.9); Platelet Count 251 K/mcL (140-400); Red Blood Count 5.42 M/mcL (4.19-5.50); Red Cell Distribution Width 13.5 % (11.5-14.5); Segmented Neutrophils % 58.8 %
[2018-02-24 05:40] LABS: BUN/Creatinine Ratio 12 (6-26); Blood Urea Nitrogen 14 mg/dL (6-20); Calcium 9.1 mg/dL (8.6-10.3); Carbon Dioxide 24 mEq/L (23-29); Chloride 106 mEq/L (98-107); Glucose 104 mg/dL (70-105); Osmolality,Calculated 289 (280-300); Potassium 4.2 mEq/L (3.5-5.1); Sodium 139 mEq/L (136-145); eGFR For African Americans > 60 (> 60); eGFR For Non-African Americans > 60 (> 60)
[2018-02-24] MEDS ORDERED: Regadenoson 0.4 MG/5 ML SYRINGE IVP ONE (06:46)
--- NOTE | 2018-02-24 07:44 | Event Note ---
Date of Encounter: 02/24/18 Time of Encounter: 07:43 - Cardiology Event Note Device check last night with no events. NOrmal functioning device. Cardiology will sign off and will follow in outpateint setting. Pateint has follow up next week with primary motorcycle builder.
--- NOTE | 2018-02-24 07:49 | Discharge Summary ---
- NOTES TO OUTPATIENT PROVIDER Notes to Outpatient Provider: Pt has been treated for chest pain/SOB. BNP mildly elevated but pt euvolemic. EKG was WNL without ischemic changes, trops negative, no change in TTE . Pt is already on BB, ASA, statin, ACEI, and Brilinta. Device check was negative for events. SOB most likely due to moderate airway obstructive pattern noted on PFTs from Dec, 2017, as well as obesity and deconditioning. Pt has follow up with Dr. Holbrook next week. Orders not resulted at time of discharge: Pending orders Date of Encounter: 02/24/18 Time of Encounter: 09:10 - Discharge Diagnosis (1) Hypertension Priority: Secondary Status: Chronic Assessment and Plan: Chronic. Well controlled, continue home medications. Qualifiers: Hypertension type: essential hypertension Qualified Code(s): I10 - Essential (primary) hypertension (2) SVT (supraventricular tachycardia) Priority: Secondary Status: Chronic Assessment and Plan: Stable. Rate controlled. Continue telemetry and monitor pt. Continue Amiodarone and Toprol XL Device check completed, WNL. (3) NSTEMI (non-ST elevated myocardial infarction) Priority: Secondary Status: Resolved (4) Ischemic cardiomyopathy Priority: Secondary Status: Chronic Assessment and Plan: Continue beta agustín, ACEI, Lasix, Aldactone. Patient has mildly elevated BNP, suspect chronic elevation. Echocardiogram today showed LVEF 30%, moderately dilated LV, moderate LV DD. SEgmental LV systolic dysfunction. Unchanged from prior. (5) Chest pain Priority: Secondary Status: Resolved Assessment and Plan: Patient continues to deny chest pain. Patient with ischemic cardiomyopathy and history of CHF. Continue aspirin, statin, beta agustín, Amiodarone, ACEI and Brilinta at home. Troponins were negative. Chest x-ray negative. EKG without any ST changes. Pt has appointment with cardiology next week. Cardiology has signed off. Chest X-Ray 02/21/18 13:10 IMPRESSION: No acute airspace disease identified. Status post left subclavian ICD placement. D/ / Italo Winters / Italo Winters Interpreting Provider: Italo Winters Echocardiogram 02/23/18 07:33 Impressions: LVEF 30%. Moderately dilated left ventricle. Segmental left ventricular systolic dysfunction. Moderate left ventricular diastolic dysfunction. Right ventricle not well visualized. Function is grossly normal. A device lead was visualized in the right atrium and right ventricle. No evidence of pulmonary hypertension. RVSP not well obtained due to poor TR jet. Left Ventricular Wall Motion: Rest Echo Findings The apex, apical inferior, apical anterior, mid anterior, apical septal, mid inferior septal, apical lateral and mid anterior septal maldonado were hypokinetic. All other wall segments showed normal motion. Findings: Study Quality * Technically sub-optimal due to body habitus. ECG Findings * Normal sinus rhythm. Left Ventricle * LVEF 30%. * Moderately dilated left ventricle. * Segmental left ventricular systolic dysfunction. * Moderate left ventricular diastolic dysfunction. Right Ventricle * Right ventricle not well visualized. Function is grossly normal. Left Atrium * Moderately dilated left atrium. Right Atrium * Right atrium is not well visualized. Aortic Valve * Aortic valve not well visualized. * No aortic stenosis. * No aortic regurgitation. Mitral Valve * Mitral valve not well visualized. * No mitral regurgitation. * No mitral stenosis. Tricuspid Valve * Normal tricuspid valve structure and function. * Trace tricuspid regurgitation. * No evidence of pulmonary hypertension. Pulmonic Valve * Pulmonic valve not well visualized. * No pulmonic regurgitation. Aorta * Normally sized aortic root. Pericardium * There is a trivial pericardial effusion present. IVC * The IVC is not well evaluated. Device lead * A device lead was visualized in the right atrium and right ventricle. Pulmonary Artery * Pulmonary artery not well visualized. Qualifiers: Chest pain type: unspecified Qualified Code(s): R07.9 - Chest pain, unspecified (6) AICD (automatic cardioverter/defibrillator) present Priority: Secondary Status: Inactive Assessment and Plan: Chronic. Device checked by cardiology, WNL. Cardiology has signed off. (7) History of heart artery stent Priority: Secondary Status: Inactive Assessment and Plan: History. Plan as above. 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 Echo today with EF 30%, moderatle dilated LV, segmental LV systolic dysfumction , moderate LV DD, unchanged from prior. BNP mildly elevated at 302. Euvolemic on physical exam, suspect chronic mild elevation due to poor EF.. Plan as above Qualifiers: Heart failure chronicity: chronic Qualified Code(s): I50.42 - Chronic combined systolic (congestive) and diastolic (congestive) heart failure (9) Morbid obesity with BMI of 45.0-49.9, adult Priority: Secondary Status: Chronic Assessment and Plan: Chronic. Pt and I have discussed lifestyle modifications including heart healthy diet and increasing exercise as he can tolerate. Hospital course: Mr. Hitchcock is a 47 year old male with extensive cardiac history including ischemic cardiomyopathy, [place] with stent placement, AICD, CHF, HLD, CAD, SVT. Pt presented to [facility] with SOB. Pt with elevated BNP on arrival, most likely chronically elevated due to poor EF and chronic cardiomyopathy. Pt admitted for evaluation. Chest xray negative, echo unchanged from prior with EF 30%, moderately dilater LV, diastolic and systolic dysfunction. Device was interrogated with no events noted. Pt denies chest pain or SOB since first day of admission. SOB likely multifactorial and due to obesity, deconditioning, and moderate obstructive lung disease as noted in PFTs from dec, 2017. Labs and vitals are stable and pt denies any above mentioned complaints. He is stable and appropriate for discharge. Discharge discussed with: patient, family - Time Spent with Patient Total time spent providing and/or coordinating discharge services: Less than 30 minutes - Discharge Medications Prescriptions: Amiodarone [Cordarone] 200 mg PO DAILY #30 tablet Home Medications: Aspirin 81 mg PO DAILY #30 tab.chew 01/19/17 [Rx] Lisinopril [Zestril] 2.5 mg PO DAILY #30 tablet 01/19/17 [Rx] Rosuvastatin [Crestor] 40 mg PO HS #30 tablet 01/19/17 [Rx] Ticagrelor [Brilinta] 90 mg PO BID #60 tablet 01/19/17 [Rx] Furosemide [Lasix] 20 mg PO DAILY 05/05/17 [History] Metoprolol XL (24 HR) Succ [Toprol Xl] 50 mg PO DAILY 05/05/17 [History] Spironolactone [Aldactone] 25 mg PO BID 05/05/17 [History] Amiodarone [Cordarone] 200 mg PO DAILY #30 tablet 02/24/18 [Rx] Allergies/Adverse Reactions: 3 Allergy/AdvReac Type Severity Reaction Status Date / Time Penicillins Allergy Unknown Unkown Verified 02/21/18 13:02 Date of admission: 02/21/18 15:15 Primary care physician: Ellis Meek DO Consults: 02/21/18 19:01 Consult to Cardiology [CONS] Routine Comment: Consulting Provider: Cardiology Aminata Reason for Consult: Cp Call Completed: Yes Discharging clinician: Alexandria Ball Anticipated date of discharge: 02/24/18 - Constitutional Vitals: Temp Pulse Resp BP Pulse Ox 97.8 F 67 16 103/67 96 02/24/18 03:50 02/24/18 03:50 02/24/18 03:50 02/24/18 03:50 02/24/18 03:50 General appearance: Present: cooperative, A&O X 3, morbidly obese, pleasant, no acute distress, answers questions appropriately - Patient Status Disposition: Home, Self-Care Condition: Good Functional capacity at discharge: independent ambulation Overall status at discharge: patient is back to baseline - Discharge Instructions Follow Up With: Ellis Meek DO [Primary Care Provider] - Socrates Holbrook MD [Partnered Physician] - 03/01/18 10:00 am Additional Instructions: Please follow up with cardiology as scheduled next week. Please see your pcp in the next 7-10 days for a recheck. REturn to the ER as needed for any other problems or concerns, or if your symptoms return or worsen. Follow with pulmonology and PCP for further assessment of shortness of breath. Resume your normal medications. A prescription for your Amiodarone has been sent to your pharmacy. Start a lower calorie, lower fat, diet and exercise at least 30 minutes 3x per week as you can tolerate. - Diet and Activity Activity: increase activity as tolerated Diet: diabetic diet, low fat, low cholesterol
[2018-02-24] MEDS: Furosemide 20 MG TABLET PO SCH (09:11)
[2018-02-24] MEDS: Metoprolol XL (24 HR) Succ 25 MG TAB.ER.24H PO SCH (09:11)
[2018-02-24] MEDS: Spironolactone 25 MG TABLET PO SCH (09:11)
[2018-02-24] MEDS: *HR* Ticagrelor 90 MG TABLET PO SCH (09:11)
[2018-02-24] MEDS: Aspirin 81 MG TAB.CHEW PO SCH (09:11)
[2018-02-24] MEDS: *HR* Amiodarone 200 MG TABLET PO SCH (09:11)
--- NOTE | 2018-02-24 18:07 | Electrocardiograph Report ---
[address] [address] Test Date: 2018-02-21 Pat Name: Zak Hitchcock Department: 103 Room: 3B Gender: M [employer]age [employer] Maker: : 1970 Requested By: Kathrin Jorge Order Number: [id number] Reading MD: Gabbi Grimaldo Measurements Intervals [place] Rate: 83 P: 47 [place]: 202 QRS: 70 QRSD: 118 T: 96 QT: 397 QTc: 437 Interpretive Statements SINUS RHYTHM POSSIBLE LEFT ATRIAL ENLARGEMENT [-0.1mV P WAVE IN V1/V2] MODERATE INTRAVENTRICULAR CONDUCTION DELAY [110+ ms QRS DURATION] MODERATE ST DEPRESSION [0.05+ mV ST DEPRESSION] Electronically Signed On 02-24-2018 18:05:49 EDT by Gabbi Grimaldo
== END 2018-02-24 11:05 | disposition home or self-care (01) ==
LOC: EMEROO 13:00 → 3BNU 13:00
PROVIDERS: ADMIT Pediatrics; ATTEND Pediatrics

== ENCOUNTER 2019-08-14 11:05 | Observation (INO) ==
[2019-08-14 11:43] LABS: Basophils % 0.3 %; Eosinophils # 0.3 K/mcL (0.0-0.6); Eosinophils % 2.3 %; Hematocrit 40.7 % (37.5-50.1); Hemoglobin 13.3 g/dL (12.9-16.9); Immature Granulocytes % 0.3 % (0-4); Lymphocytes # 2.4 K/mcL (0.6-4.6); Lymphocytes % 20.8 %; Mean Corpuscular HGB Conc 32.7 g/dL (31.6-35.5); Mean Corpuscular Hemoglobin 29.2 pg (28.0-33.3); Mean Corpuscular Volume 89.5 fL (83.0-100.0); Mean Platelet Volume 11.8 fL (9.4-12.4); Monocytes # 0.8 K/mcL (0.0-1.3); Monocytes % 6.7 %; Platelet Count 212 K/mcL (140-400); Red Blood Count 4.55 M/mcL (4.19-5.50); Segmented Neutrophils % 69.6 %; White Blood Count 11.5 K/mcL (4.3-11.1)
[2019-08-14 12:03] LABS: BUN/Creatinine Ratio 11 (6-26); Blood Urea Nitrogen 12 mg/dL (6-20); Carbon Dioxide 27 mEq/L (23-29); Chloride 101 mEq/L (98-107); Glucose 144 mg/dL (70-105); Osmolality,Calculated 288 (280-300); Sodium 138 mEq/L (136-145); Troponin I < 0.03 ng/mL (< 0.04); eGFR For African Americans > 60 (> 60); eGFR For Non-African Americans > 60 (> 60)
[2019-08-14] MEDS ORDERED: Furosemide 40 MG/4 ML VIAL IVP ONE ×2 (14:06→19:00)
[2019-08-14] MEDS ORDERED: Naloxone 0.4 MG/ML INJ IVP PRN (16:44)
[2019-08-14] MEDS ORDERED: Nitroglycerin 0.4 MG TAB.SUBL SL PRN (17:08)
[2019-08-14] MEDS: *HR* Ticagrelor 90 MG TABLET PO SCH (21:24)
[2019-08-14] MEDS: Spironolactone 25 MG TABLET PO SCH (21:24)
[2019-08-15 04:14] LABS: Basophils # 0.1 K/mcL (0.0-0.2); Basophils % 0.5 %; Eosinophils # 0.4 K/mcL (0.0-0.6); Eosinophils % 3.5 %; Hematocrit 42.8 % (37.5-50.1); Immature Granulocytes % 0.4 % (0-4); Lymphocytes # 2.5 K/mcL (0.6-4.6); Lymphocytes % 25.3 %; Mean Corpuscular HGB Conc 32.7 g/dL (31.6-35.5); Mean Corpuscular Hemoglobin 28.5 pg (28.0-33.3); Mean Corpuscular Volume 87.2 fL (83.0-100.0); Mean Platelet Volume 11.9 fL (9.4-12.4); Monocytes # 0.9 K/mcL (0.0-1.3); Monocytes % 8.8 %; Neutrophils # 6.1 K/mcL (1.6-8.9); Platelet Count 223 K/mcL (140-400); Red Blood Count 4.91 M/mcL (4.19-5.50); Segmented Neutrophils % 61.5 %; White Blood Count 9.9 K/mcL (4.3-11.1)
[2019-08-15 04:33] LABS: BUN/Creatinine Ratio 13 (6-26); Blood Urea Nitrogen 15 mg/dL (6-20); Calcium 9.2 mg/dL (8.6-10.3); Carbon Dioxide 29 mEq/L (23-29); Chloride 98 mEq/L (98-107); Glucose 126 mg/dL (70-105); Osmolality,Calculated 288 (280-300); Potassium 3.4 mEq/L (3.5-5.1); Sodium 138 mEq/L (136-145); eGFR For African Americans > 60 (> 60); eGFR For Non-African Americans > 60 (> 60)
[2019-08-15] MEDS: Metoprolol XL (24 HR) Succ 50 MG TAB.ER.24H PO SCH (07:45)
[2019-08-15] MEDS: Spironolactone 25 MG TABLET PO SCH ×2 (07:47→20:21)
[2019-08-15] MEDS: *HR* Amiodarone 200 MG TABLET PO SCH (07:47)
[2019-08-15] MEDS: Isosorbide MONOnitrate (24 HR) 60 MG TAB.ER.24H PO SCH (07:48)
[2019-08-15] MEDS: *HR* Ticagrelor 90 MG TABLET PO SCH ×2 (07:48→20:21)
[2019-08-15] MEDS: Aspirin 81 MG TAB.CHEW PO SCH (07:48)
[2019-08-15] MEDS: Furosemide 40 MG/4 ML VIAL IVP SCH (17:16)
[2019-08-15] MEDS ORDERED: Perflutren Lipid Microsphere 1.3 ML in 0.9 % Sodium Chloride 8.7 ML IVP ONE (20:25)
[2019-08-16 06:30] LABS: BUN/Creatinine Ratio 18 (6-26); Blood Urea Nitrogen 21 mg/dL (6-20); Calcium 9.7 mg/dL (8.6-10.3); Carbon Dioxide 27 mEq/L (23-29); Chloride 101 mEq/L (98-107); Glucose 119 mg/dL (70-105); Osmolality,Calculated 292 (280-300); Potassium 4.7 mEq/L (3.5-5.1); Sodium 139 mEq/L (136-145); eGFR For African Americans > 60 (> 60); eGFR For Non-African Americans > 60 (> 60)
[2019-08-16 07:45] VITALS: BP 133/88
[2019-08-16] MEDS: Furosemide 40 MG/4 ML VIAL IVP SCH (09:43)
[2019-08-16] MEDS: Spironolactone 25 MG TABLET PO SCH (09:43)
[2019-08-16] MEDS: Aspirin 81 MG TAB.CHEW PO SCH (09:44)
[2019-08-16] MEDS: *HR* Amiodarone 200 MG TABLET PO SCH (09:44)
[2019-08-16] MEDS: Isosorbide MONOnitrate (24 HR) 60 MG TAB.ER.24H PO SCH (09:44)
[2019-08-16] MEDS: Metoprolol XL (24 HR) Succ 50 MG TAB.ER.24H PO SCH (09:45)
[2019-08-16] MEDS: *HR* Ticagrelor 90 MG TABLET PO SCH (09:45)
== END 2019-08-16 13:28 | disposition home or self-care (01) ==
LOC: 3BNU 11:05 → EMEROOARM 11:05 → SUATTDRO 14:25 → 3BNU 15:03
PROVIDERS: ADMIT Family Medicine; ATTEND Internal Medicine

== ENCOUNTER 2021-04-21 10:45 | Observation (INO) ==
[2021-04-21] MEDS ORDERED: Aspirin 81 MG TAB.CHEW PO ONE (11:37)
[2021-04-21 11:46] LABS: Basophils # 0.1 K/mcL (0.0-0.2); Basophils % 0.5 %; Eosinophils # 0.2 K/mcL (0.0-0.6); Eosinophils % 1.7 %; Hematocrit 41.9 % (37.5-50.1); Hemoglobin 13.3 g/dL (12.9-16.9); Immature Granulocytes % 0.3 % (0-4); Lymphocytes # 3.1 K/mcL (0.6-4.6); Mean Corpuscular HGB Conc 31.7 g/dL (31.6-35.5); Mean Corpuscular Hemoglobin 28.5 pg (28.0-33.3); Mean Corpuscular Volume 89.7 fL (83.0-100.0); Mean Platelet Volume 11.6 fL (9.4-12.4); Monocytes % 7.7 %; Neutrophils # 7.9 K/mcL (1.6-8.9); Platelet Count 257 K/mcL (140-400); Red Blood Count 4.67 M/mcL (4.19-5.50); Red Cell Distribution Width 13.5 % (11.5-14.5); Segmented Neutrophils % 64.8 %; White Blood Count 12.3 K/mcL (4.3-11.1)
[2021-04-21 12:33] LABS: Alanine Aminotransferase 44 Units/L (7-52); Albumin 4.1 g/dL (3.5-5.7); Albumin/Globulin Ratio 1.5 (1.1-2.2); Alkaline Phosphatase 64 Units/L (34-104); Aspartate Amino Transferase 30 Units/L (13-39); BUN/Creatinine Ratio 21 (6-26); Bilirubin,Direct 0.2 mg/dL (0.0-0.2); Bilirubin,Indirect 0.8 mg/dL (0.0-1.0); Blood Urea Nitrogen 30 mg/dL (6-20); Carbon Dioxide 23 mEq/L (23-29); Chloride 105 mEq/L (98-107); Globulin 2.8 g/dL (2.4-3.5); Glucose 92 mg/dL (70-105); Osmolality,Calculated 298 (280-300); Potassium 4.1 mEq/L (3.5-5.1); Sodium 141 mEq/L (136-145); Total Protein 6.9 g/dL (6.4-8.9); Troponin I < 0.03 ng/mL (< 0.04); eGFR For African Americans > 60 (> 60); eGFR For Non-African Americans 53 (> 60)
[2021-04-21] MEDS ORDERED: Naloxone 0.4 MG/ML INJ IVP PRN (15:18)
[2021-04-21] MEDS ORDERED: 0.9 % Sodium Chloride 250 ML IVC SCH (15:30)
[2021-04-21] MEDS ORDERED: D5% in Water 1,000 ML IVC PRN (16:23)
[2021-04-21] MEDS ORDERED: Dextrose Gel 15 GM/37.5 ML TUBE PO PRN ×2 (16:23)
[2021-04-21] MEDS ORDERED: *HR* Dextrose 50 % in Water (Vial) 50 ML VIAL IVP PRN (16:23)
[2021-04-21] MEDS: *HR* Heparin 5,000 UNIT/ML VIAL SQ SCH (16:44)
[2021-04-21] MEDS: Insulin LISPRO 300 UNITS/3 ML VIAL SUBQ SCH (16:55)
[2021-04-22 02:03] LABS: Basophils % 0.3 %; Eosinophils # 0.3 K/mcL (0.0-0.6); Eosinophils % 2.6 %; Hematocrit 41.2 % (37.5-50.1); Hemoglobin 13.6 g/dL (12.9-16.9); Immature Granulocytes % 0.2 % (0-4); Lymphocytes # 3.7 K/mcL (0.6-4.6); Lymphocytes % 30.4 %; Mean Corpuscular Hemoglobin 29.2 pg (28.0-33.3); Mean Corpuscular Volume 88.6 fL (83.0-100.0); Mean Platelet Volume 11.8 fL (9.4-12.4); Monocytes % 7.9 %; Neutrophils # 7.1 K/mcL (1.6-8.9); Platelet Count 241 K/mcL (140-400); Red Blood Count 4.65 M/mcL (4.19-5.50); Red Cell Distribution Width 13.6 % (11.5-14.5); Segmented Neutrophils % 58.6 %; White Blood Count 12.2 K/mcL (4.3-11.1)
[2021-04-22 02:19] LABS: BUN/Creatinine Ratio 24 (6-26); Blood Urea Nitrogen 24 mg/dL (6-20); Calcium 8.9 mg/dL (8.6-10.3); Carbon Dioxide 24 mEq/L (23-29); Chloride 106 mEq/L (98-107); Cholesterol 120 mg/dL (< 200); Glucose 98 mg/dL (70-105); HDL Cholesterol 30 mg/dL (40-59); LDL Cholesterol,Calculated 66 mg/dL (< 100); Osmolality,Calculated 294 (280-300); Potassium 4.2 mEq/L (3.5-5.1); Sodium 140 mEq/L (136-145); Triglycerides 121 mg/dL (< 150); eGFR For African Americans > 60 (> 60); eGFR For Non-African Americans > 60 (> 60)
[2021-04-22] MEDS: *HR* Heparin 5,000 UNIT/ML VIAL SQ SCH ×2 (05:05→16:50)
[2021-04-22] MEDS: Insulin LISPRO 300 UNITS/3 ML VIAL SUBQ SCH ×3 (07:56→16:42)
[2021-04-22] MEDS ORDERED: Perflutren Lipid Microsphere 1.3 ML in 0.9 % Sodium Chloride 8.7 ML IVP PRN (08:58)
[2021-04-22] MEDS ORDERED: (Umeclidinium Brm/Vilanterol Tr [Anoro Ellipta 62.5-2 IH SCH (09:00)
[2021-04-22] MEDS ORDERED: Adenosine 90 MG/30 ML MLS IV ONE ×2 (09:00→15:27)
[2021-04-22] MEDS ORDERED: (Ezetimibe [Zetia] 10 MG Tablet) PO SCH (09:00)
[2021-04-22 09:39] LABS: INR 1.1; Prothrombin Time 12.8 Seconds (9.4-12.1)
[2021-04-22] MEDS ORDERED: *HR* FentaNYL (PF) 100 MCG/2 ML VIAL ONE (11:09)
[2021-04-22] MEDS ORDERED: *HR* Midazolam HCl 2 MG/2 ML VIAL ONE (11:09)
[2021-04-22] MEDS ORDERED: 0.9 % Sodium Chloride 2,000 ML ONE (11:10)
[2021-04-22] MEDS ORDERED: *HR* Heparin 10,000 UNIT/10 ML VIAL ONE (11:10)
[2021-04-22] MEDS ORDERED: Nitroglycerin 1,000 MCG/5 ML VIAL IV ONE (11:10)
[2021-04-22] MEDS ORDERED: ISOVUE-370 200 ML INFUS..BTL ONE ×2 (11:10→12:19)
[2021-04-22] MEDS ORDERED: Heparin 1,000 UNITS/500 mL 500 ML ONE (11:10)
[2021-04-22] MEDS: Metoprolol XL (24 HR) Succ 50 MG TAB.ER.24H PO SCH (11:16)
[2021-04-22] MEDS: Aspirin 81 MG TAB.CHEW PO SCH (11:16)
[2021-04-22] MEDS: Isosorbide MONOnitrate (24 HR) 60 MG TAB.ER.24H PO SCH (11:16)
[2021-04-22] MEDS ORDERED: 0.9 % Sodium Chloride 250 ML ONE (12:17)
[2021-04-23 02:16] LABS: Basophils # 0.1 K/mcL (0.0-0.2); Basophils % 0.6 %; Eosinophils # 0.2 K/mcL (0.0-0.6); Eosinophils % 2.7 %; Hematocrit 42.2 % (37.5-50.1); Hemoglobin 13.4 g/dL (12.9-16.9); Immature Granulocytes % 0.3 % (0-4); Lymphocytes # 2.1 K/mcL (0.6-4.6); Lymphocytes % 23.6 %; Mean Corpuscular HGB Conc 31.8 g/dL (31.6-35.5); Mean Corpuscular Hemoglobin 27.9 pg (28.0-33.3); Mean Corpuscular Volume 87.9 fL (83.0-100.0); Mean Platelet Volume 11.9 fL (9.4-12.4); Monocytes # 0.8 K/mcL (0.0-1.3); Monocytes % 9.4 %; Neutrophils # 5.6 K/mcL (1.6-8.9); Platelet Count 230 K/mcL (140-400); Red Cell Distribution Width 13.3 % (11.5-14.5); Segmented Neutrophils % 63.4 %; White Blood Count 8.8 K/mcL (4.3-11.1)
[2021-04-23 02:36] LABS: BUN/Creatinine Ratio 19 (6-26); Blood Urea Nitrogen 18 mg/dL (6-20); Calcium 8.8 mg/dL (8.6-10.3); Carbon Dioxide 24 mEq/L (23-29); Chloride 104 mEq/L (98-107); Glucose 97 mg/dL (70-105); Osmolality,Calculated 288 (280-300); Potassium 4.2 mEq/L (3.5-5.1); Sodium 138 mEq/L (136-145); eGFR For African Americans > 60 (> 60); eGFR For Non-African Americans > 60 (> 60)
[2021-04-23] MEDS: *HR* Heparin 5,000 UNIT/ML VIAL SQ SCH (05:26)
[2021-04-23] MEDS: Insulin LISPRO 300 UNITS/3 ML VIAL SUBQ SCH ×2 (07:47→11:39)
[2021-04-23] MEDS: Isosorbide MONOnitrate (24 HR) 60 MG TAB.ER.24H PO SCH (08:23)
[2021-04-23] MEDS: Metoprolol XL (24 HR) Succ 50 MG TAB.ER.24H PO SCH (08:23)
[2021-04-23] MEDS: Aspirin 81 MG TAB.CHEW PO SCH (08:23)
[2021-04-23 10:57] VITALS: BP 101/56
== END 2021-04-23 14:21 | disposition home or self-care (01) ==
LOC: 2ANU 10:45 → EMEROOARM 10:45 → SUATTDRO 15:26 → 2ANU 16:10
PROVIDERS: ADMIT Internal Medicine; ATTEND Internal Medicine